=== PATIENT | male | born 1955 | race Caucasian/White ===

== ENCOUNTER → 2020-07-08 | Outpatient (CLI) | payer MEDICARE, OTHER ==
[~2020-07-08] MED LIST: DOXY100 PO
== END | disposition home or self-care (01) ==
LOC: LAB 19:15 → LAB SHORT 19:15
DX: N30.01 Acute cystitis with hematuria (principal)
CPT/HCPCS: 87086

== ENCOUNTER 2023-01-04 11:43 | Emergency (ER) | payer MEDICARE, OTHER ==
[~2023-01-04] VITALS: Ht 170.2 cm; Wt 77.1 kg
[~2023-01-04 11:43] MED LIST changes: +Amphetamine Sal20 MG PO; +INSULANI; +Percocet 5-3251 EACH PO
[2023-01-04] MEDS ORDERED: OXAYDO5 M1 PO (14:46)
[2023-01-04] MEDS ORDERED: METPRE4DP PO (14:46)
[2023-01-04 15:15] VITALS: BP 151/91
== END 2023-01-04 15:15 | disposition home or self-care (01) ==
LOC: ER 11:43
DX: M54.16 Radiculopathy, lumbar region (principal); Z88.5 Allergy status to narcotic agent
CPT/HCPCS: 99283; A9270; J1100

== ENCOUNTER 2023-07-16 11:32 | Inpatient (IN) | payer MEDICARE, OTHER ==
[~2023-07-16] VITALS: Ht 170.2 cm; Wt 76.2 kg
[~2023-07-16 11:32] MED LIST changes: -INSULANI; +INSULANI SC; +METPRE4DP PO; +OXAYDO5 M1 PO
[2023-07-16 13:26] LABS: Hematocrit 39.6 % (37.0-53.0); Hemoglobin 13.2 g/dL (13.5-17.5); Mean Corpuscular HGB 24.5 pg (26.0-34.0); Mean Corpuscular HGB Conc 33.3 g/dL (31.5-36.5); Mean Corpuscular Volume 74 fL (80-100); Mean Platelet Volume 10.7 fL (9.1-12.4); Platelet Count 120 K/mm3 (150-400); RDW Coefficient Variation 18.9 % (11.7-14.2); RDW Standard Deviation 48.7 fL (35.1-46.3); Red Blood Cell Count 5.39 M/mm3 (4.30-5.90); White Blood Cell Count 6.01 K/mm3 (4.00-11.30)
[2023-07-16 13:35] LABS: Bun/Creatinine Ratio 36.7 (12.0-20.0); Calcium, Blood 10.1 mg/dL (8.5-10.1); Creatinine, Blood 1.5 mg/dL (0.60-1.20); Potassium, Blood 3.4 mmol/L (3.5-5.5)
[2023-07-16 13:56] LABS: BAND PERCENT MAN 34 % (0-8); BASOPHILS PERCENT MAN 0 % (0-2); EOSINOPHILS ABSOLUTE MAN 0.06 K/mm3 (0.00-0.68); EOSINOPHILS PERCENT MAN 1 % (0-6); LYMPHOCYTES PERCENT MAN 5 % (21-46); MONOCYTES ABSOLUTE MAN 0.48 K/mm3 (0.16-1.47); MONOCYTES PERCENT MAN 8 % (4-13); NEUTROPHILS ABSOLUTE MAN 5.16 K/mm3 (1.96-9.15); SEG NEUTROPHILS PERCENT MAN 52 % (41-73); TOTAL CELLS COUNTED 100
[2023-07-16 18:24] LABS: Source, Urine Clean Catch
[2023-07-16 18:38] LABS: Bilirubin, Urine Neg (Neg); Blood, Urine 2+ (Neg); Color, Urine Yellow (P-Yellow); Glucose Qualitative, Urine 4+ (Neg); Ketones, Urine Neg (Neg); Leukocyte Esterase, Urine Neg (Neg); Nitrite, Urine Neg (Neg); Protein, Urine 2+ (Neg); Specific Gravity, Urine 1.015 (1.003-1.022); Urobilinogen, Urine NORM (Normal)
[2023-07-16 18:46] LABS: Appearance, Urine Hazy (Clear)
[2023-07-16 18:50] LABS: Bacteria Many /hpf; Hyaline Casts 0-2 /lpf (0-2); Renal Epithelial Rare /hpf (0-Rare); Squamous Epithelial Cells Few /hpf (Few); Yeast/Fungi Urine Few /hpf
[2023-07-17] MEDS ORDERED: HYDCHL25 PO (01:09)
[2023-07-17] MEDS ORDERED: KLOR-CON 1010 ME9 PO (01:09)
[2023-07-17] MEDS ORDERED: CYCL10 PO (01:10)
[2023-07-17] MEDS ORDERED: ACTOS30 MG PO (01:12)
[2023-07-17] MEDS ORDERED: Ventolin/Prove6.7 GM INH (01:12)
[2023-07-17] MEDS ORDERED: MOBIC15 MG PO (01:13)
[2023-07-17] MEDS ORDERED: Simvastatin20 MG PO (01:13)
[2023-07-17] MEDS ORDERED: FUROSEMIDE40 MG PO (01:14)
[2023-07-17] MEDS ORDERED: PROZAC2010 PO (01:15)
[2023-07-17] MEDS ORDERED: CELEXA40 M9 PO (01:16)
[2023-07-17] MEDS ORDERED: CITALOPRAM HBR20 M9 PO (01:16)
[2023-07-17] MEDS ORDERED: BUSPIRONE HCL10 M6 PO (01:17)
[2023-07-17] MEDS ORDERED: PANTOPRAZOLE SO40 M2 PO (01:17)
[2023-07-17] MEDS ORDERED: BUPR75 PO (01:18)
[2023-07-17] MEDS ORDERED: ATOMOXETINE HCL40 M3 PO (01:18)
[2023-07-17] MEDS ORDERED: SEMGLEE (Y100 UNIT/2 SC (01:19)
[2023-07-17] MEDS ORDERED: JARDIANCE10 MG PO (01:19)
[2023-07-17 01:30] VITALS: BP 123/85
[2023-07-17 05:08] VITALS: BP 106/77
[2023-07-17 05:50] LABS: Hematocrit 32.2 % (37.0-53.0); Hemoglobin 10.7 g/dL (13.5-17.5); Mean Corpuscular HGB 24.1 pg (26.0-34.0); Mean Corpuscular HGB Conc 33.2 g/dL (31.5-36.5); Mean Corpuscular Volume 73 fL (80-100); Mean Platelet Volume 10.7 fL (9.1-12.4); Platelet Count 69 K/mm3 (150-400); RDW Coefficient Variation 18.5 % (11.7-14.2); Red Blood Cell Count 4.44 M/mm3 (4.30-5.90); White Blood Cell Count 5.93 K/mm3 (4.00-11.30)
--- NOTE | 2023-07-17 05:53 | NUR ---
SHIFT SUMMARY NOC PT A/O X 2-3 AND CONFUSED AT TIMES. ADMIT FROM ED WITH DX OF BLE WEAKNESS AND INRETRACATABLE PAIN. ALSO HAS UTI AND RECEIVING IV ROCEPHIN ABX. PT HAS ROBERTSON IN PLACE FOR ACUTE RETENTION. IS ON BEDREST AND IS 2PA MAX. PT HAS NS @ 75 ML/HR X 1 BAG INFUSING. PT HAS BED ALARM ON BECAUSE OF IMPULSITIVITY AND ATTEMPTING OOB UNSAFELY. PT ALSO HAS TO BE REMINDED NOT TO PULL ON ROBERTSON CATHETER. PT PAIN IS MANAGED WITH FENTANYL IV Q4H WITH MINIMAL EFFECT. 3 DOSES OF TORADOL ORDERED WITH FIRST DOSE GIVEN. PT IS CURRENTLY RESTING WITH BED ALARM ON, 3 BED RAILS UP, BED IN LOWEST POSITION, AND CALL LIGHT WITHIN REACH.
[2023-07-17 06:11] LABS: Albumin/Globulin Ratio 0.5 (0.8-1.8); Bilirubin, Total 1.1 mg/dL (0.1-1.0); Bun/Creatinine Ratio 46.1 (12.0-20.0); Calcium, Blood 9.3 mg/dL (8.5-10.1); Creatinine, Blood 1.41 mg/dL (0.60-1.20); Globulin, Blood 4.1 g/dL (2.2-4.0); Potassium, Blood 3.6 mmol/L (3.5-5.5); Total Protein, Blood 6.1 g/dL (6.4-8.2)
[2023-07-17 06:37] LABS: BAND PERCENT MAN 10 % (0-8); BASOPHILS PERCENT MAN 0 % (0-2); EOSINOPHILS PERCENT MAN 0 % (0-6); LYMPHOCYTES ABSOLUTE MAN 0.17 K/mm3 (0.84-5.20); LYMPHOCYTES PERCENT MAN 3 % (21-46); METAMYELOCYTE ABSOLUTE MAN 0.23 K/mm3 (0.00-0.00); METAMYELOCYTE PERCENT MAN 4 % (0-0); MONOCYTES ABSOLUTE MAN 0.29 K/mm3 (0.16-1.47); MONOCYTES PERCENT MAN 5 % (4-13); NEUTROPHILS ABSOLUTE MAN 5.21 K/mm3 (1.96-9.15); SEG NEUTROPHILS PERCENT MAN 78 % (41-73); TOTAL CELLS COUNTED 100
[2023-07-17 07:06] VITALS: BP 116/69
[2023-07-17 09:45] LABS: U Cannabinoids Screen DETECTED
[2023-07-17 09:46] LABS: U Amphetamine Screen DETECTED; U Barbituate Screen Not Detected; U Benzodiazapine Screen Not Detected; U Buprenorphine Screen Not Detected; U Cocaine Screen Not Detected; U Methadone Screen Not Detected; U Methamphetamine Screen DETECTED; U Opiates Screen Not Detected; U Oxycodone Screen Not Detected; U Phencyclidine Screen Not Detected
[2023-07-17 15:25] VITALS: BP 129/86
--- NOTE | 2023-07-17 17:14 | NUR ---
SHIFT SUMMARY Pt alert and oriented on assessment. at bedside. Pt agrees to IV placement and not remove. Meds given as ordered. Increased sleep between meals. Shoulder pain managed with IV Toradol. Brooks intact with good output. ACHS blood sugars with ordered coverage provided. Able to swallow pills whole. Pain and safety maintained. Will continue to monitor this shift.
[2023-07-17 19:07] VITALS: BP 130/83
--- NOTE | 2023-07-18 04:28 | NUR ---
SHIFT SUMMARY PATIENT A/O X3. ROBERTSON REMOVED THIS SHIFT. PATIENT C/O OF LEFT SHOULDER PAIN-MEDICATED PER EMAR. PATIENT SLEPT OFF AND ON THIS SHIFT. PATIENT USING THE URINAL CONTINENT/INCONTINENT SINCE REMOVAL OF ROBERTSON-COMPLETE BED CHANGE REQUIRED. BLADDER SCAN DONE THIS AM-143 MLS POST CONTINENT/INCONTINENT VOID. PATIENT PLESANT AND COOPERATIVE WITH CARE. IV INFUSING WITH NO ISSUES. BED IS LOCKED IN THE LOWEST POSITION WITH CALL LIGHT IN REACH.
[2023-07-18 04:52] VITALS: BP 120/73
[2023-07-18 04:55] LABS: Hematocrit 30.5 % (37.0-53.0); Hemoglobin 10.3 g/dL (13.5-17.5); Mean Corpuscular HGB Conc 33.8 g/dL (31.5-36.5); Mean Corpuscular Volume 71 fL (80-100); NRBC ABSOLUTE 0.02 K/mm3 (0.00-0.02); NRBC Auto 0.4 /100 WBC (0.0-0.2); RDW Coefficient Variation 18.4 % (11.7-14.2); RDW Standard Deviation 46.6 fL (35.1-46.3); Red Blood Cell Count 4.29 M/mm3 (4.30-5.90); White Blood Cell Count 4.54 K/mm3 (4.00-11.30)
[2023-07-18 05:32] LABS: Platelet Count 42 K/mm3 (150-400)
[2023-07-18 05:46] LABS: Albumin, Blood 1.9 g/dL (3.4-5.0); Anion Gap 9 mmol/L (6-16); Blood Urea Nitrogen 62 mg/dL (8-24); Bun/Creatinine Ratio 69.4 (12.0-20.0); CO2, Blood 21 mmol/L (21-32); Chloride, Blood 103 mmol/L (98-108); Creatinine, Blood 0.89 mg/dL (0.60-1.20); Glomerular Filtration Rate 93 (60-); Glucose, Blood 145 mg/dL (70-99); Phosphorus, Blood 2.2 mg/dL (2.5-4.9); Potassium, Blood 3.1 mmol/L (3.5-5.5); Sodium, Blood 133 mmol/L (136-145)
[2023-07-18 05:48] LABS: BAND PERCENT MAN 15 % (0-8); BASOPHILS PERCENT MAN 0 % (0-2); EOSINOPHILS PERCENT MAN 0 % (0-6); LYMPHOCYTES % ATYPICAL MANUAL 1 % (0-0); LYMPHOCYTES PERCENT MAN 8 % (21-46); METAMYELOCYTE ABSOLUTE MAN 0.13 K/mm3 (0.00-0.00); METAMYELOCYTE PERCENT MAN 3 % (0-0); MONOCYTES ABSOLUTE MAN 0.36 K/mm3 (0.16-1.47); MONOCYTES PERCENT MAN 8 % (4-13); MYELOCYTE ABSOLUTE MAN 0.04 K/mm3 (0.00-0.00); MYELOCYTE PERCENT MAN 1 % (0-0); NEUTROPHILS ABSOLUTE MAN 3.58 K/mm3 (1.96-9.15); SEG NEUTROPHILS PERCENT MAN 64 % (41-73); TOTAL CELLS COUNTED 100
[2023-07-18 15:12] VITALS: BP 129/76
--- NOTE | 2023-07-18 19:23 | NUR ---
SHIFT SUMMARY PT ALERT ORIENTED TO SELF AND PLACE. FORGETFUL DIFFICULT TIME RECALLING DATE. BUT REORIENTS QUICKLY, INCONT. PT FAMILY EXPRESSED CONCERN FOR HOME MEDICATION USE. DR. BRITO AT BEDSIDE TO DISCUSS CONCERNS. PT STARTED ON THAMINE AND FOLIC ACID. ACCORDING TO FAMILY PT NO LONGER TAKES ADDERALL. HELD THIS MORNING. PT IS A 2 PERSON MAX ASSIST PIVOT TO CHAIR. HE WAS UNABLE TO WALK DUE TO SAFETY CONCERN. TREATED PAIN AND CBG PER EMAR. NO ACUTE CHANGES THIS SHIFT.
[2023-07-18 19:41] VITALS: BP 120/62
--- NOTE | 2023-07-19 00:05 | NUR ---
HOSPITALIST CONTACTED. HOSPITALIST CALLED FOR PATIENTS PAIN UNCONTROLLED BY TYLENOL. HOSPITALIST, DR. MON PUT IN A ONE TIME ORDER FOR TORADOL-SEE ORDERS.
--- NOTE | 2023-07-19 01:43 | NUR ---
PATIENT PULLED HIS IV TWICE, REPLACED BY AKIL DOLL. PATIENT IS CONFUSED AND DIDNT REALIZE HE HAD PULLED HIS IV. EDUCATED PATIENT ON THE IMPORTANCE OF HIS IV TO RECEIVE HIS IV ANTIBIOTICS AND CONTINUOUS IV FLUIDS-SEE EMAR.
[2023-07-19 03:22] VITALS: BP 145/82
--- NOTE | 2023-07-19 04:30 | NUR ---
SHIFT SUMMARY PATIENT HAS AN INCREASE IN CONFUSION-PULLED IV OUT X3, TALKED TO DOCTOR ELIESER REGARDING PATIENTS IV'S-DR. MON ORDERED PO ABX-SEE EMAR AND SAID TO KEEP IV OUT FOR NOW AND REASSES DURING DAYSHIFT. PATIENT IN THIS EVENING- PATIENT HAVING PAIN UNRELIEVED BY TYLENOL. HOSPITALIST ORDERED FOR A ONE TIME DOSE OF TORADOL- SEE ORDERS. PATIENT HAS SLEPT ON AND OFF T/O NIGHT. PATIENT HAS NOT USED CALL LIGHT THIS SHIFT. BED IS LOCKED IN THE LOWEST POSITION WITH CALL LIGHT IN REACH. BED EXIT ALARM ENGAGED FOR SAFETY.
[2023-07-19 05:12] LABS: BASOPHILS ABSOLUTE AUTO 0.09 K/mm3 (0.00-0.23); BASOPHILS PERCENT AUTO 1 % (0-2); Hematocrit 29.1 % (37.0-53.0); Hemoglobin 9.8 g/dL (13.5-17.5); LYMPHOCYTES ABSOLUTE AUTO 0.77 K/mm3 (0.84-5.20); LYMPHOCYTES PERCENT AUTO 6 % (21-46); MONOCYTES ABSOLUTE AUTO 0.41 K/mm3 (0.16-1.47); MONOCYTES PERCENT AUTO 3 % (4-13); Mean Corpuscular HGB Conc 33.7 g/dL (31.5-36.5); Mean Corpuscular Volume 71 fL (80-100); RDW Coefficient Variation 18.5 % (11.7-14.2); RDW Standard Deviation 47.5 fL (35.1-46.3); Red Blood Cell Count 4.08 M/mm3 (4.30-5.90); White Blood Cell Count 12.05 K/mm3 (4.00-11.30)
[2023-07-19 05:21] LABS: EOSINOPHILS ABSOLUTE AUTO 0.01 K/mm3 (0.00-0.68); EOSINOPHILS PERCENT AUTO 0 % (0-6); IMMATURE GRAN ABSOLUTE AUTO 0.33 K/mm3 (0.00-0.10); IMMATURE GRAN PERCENT AUTO 3 % (0-1); NEUTROPHILS ABSOLUTE AUTO 10.44 K/mm3 (1.96-9.15); NEUTROPHILS PERCENT AUTO 87 % (41-73); Platelet Count 42 K/mm3 (150-400)
[2023-07-19 05:38] LABS: Albumin, Blood 1.7 g/dL (3.4-5.0); Anion Gap 6 mmol/L (6-16); Blood Urea Nitrogen 50 mg/dL (8-24); Bun/Creatinine Ratio 59.6 (12.0-20.0); CO2, Blood 21 mmol/L (21-32); Calcium, Blood 9.1 mg/dL (8.5-10.1); Chloride, Blood 108 mmol/L (98-108); Creatinine, Blood 0.84 mg/dL (0.60-1.20); Glomerular Filtration Rate 95 (60-); Glucose, Blood 101 mg/dL (70-99); Potassium, Blood 3.7 mmol/L (3.5-5.5); Sodium, Blood 135 mmol/L (136-145)
[2023-07-19 05:43] LABS: BAND PERCENT MAN 6 % (0-8); BASOPHILS PERCENT MAN 0 % (0-2); EOSINOPHILS PERCENT MAN 0 % (0-6); LYMPHOCYTES ABSOLUTE MAN 0.72 K/mm3 (0.84-5.20); LYMPHOCYTES PERCENT MAN 6 % (21-46); MONOCYTES ABSOLUTE MAN 1.08 K/mm3 (0.16-1.47); MONOCYTES PERCENT MAN 9 % (4-13); NEUTROPHILS ABSOLUTE MAN 10.24 K/mm3 (1.96-9.15); SEG NEUTROPHILS PERCENT MAN 79 % (41-73); TOTAL CELLS COUNTED 34
[2023-07-19 07:38] VITALS: BP 117/78
--- NOTE | 2023-07-19 08:11 | NUR ---
PT IS TOSSING AND TURNING IN BED. STATES THAT HIS SHOULDER IS HURTING. PER NOC RN, PT PULLED OUT [address] WILL ATTEMPT TO PL[address] ANOTHER THIS MORNING. PT DECLINED BREAKFAST STATING HE "JUST WANTS TO REST". HE IS ALERT AND ORIENTED X3 FORGETFUL OF MONTH BUT ABLE TO TELL ME THE YEAR.
[2023-07-19 15:56] VITALS: BP 123/73
--- NOTE | 2023-07-19 16:56 | NUR ---
PT SLEPT MAJORITY OF MY SHIFT. NOT MUCH PO INTAKE. AROUSABLE AND ABLE TO ANSWER QUESTIONS APPROPRIATELY. APPEARS TO BE IN SEVERE PAIN WITH THAT L SHOULDER. GRIMICING AND GROWNING WITH MOVEMENT. TREATED PER EMAR. NO ACUTE CHANGES. INCONT, BED ALARM IS ON AND IN THE LOWEST POSITION.
[2023-07-19 19:22] VITALS: BP 159/84
[2023-07-20 00:08] VITALS: BP 184/95
[2023-07-20 00:29] VITALS: BP 148/91
--- NOTE | 2023-07-20 02:04 | NUR ---
shift summery. pt resting in bed, pt had blankets on head and upper body no blankets on legs. pt appeared cold placed blankets on pt from feet to chest pt appeard more comfortable. pt given hs meds and pt took with out any difficulty. reinforced iv site. pt appears to be going to sleep. latter at 0008 adult and pediatric neurologist forun pt on floor by his bed, laying on his stomach. pt cheked for injurys and then moved back to the bed vitals taken. asked pt what had happen pt confusedf. aske pt if he hit his head pt not sure , no blood seen and no lumps or bums palpated on head. asked pt if he had pain any where pt stated his right hip, no bruse seen and skin intact. palpated area and pt not seeming to be painfull at all. call light in reach bed alarm on 3rd rail up. called dr on site manager no orders other than to observe pt for the next several hrs.
[2023-07-20 06:41] LABS: Hematocrit 30.2 % (37.0-53.0); Hemoglobin 10.2 g/dL (13.5-17.5); Mean Corpuscular HGB 23.9 pg (26.0-34.0); Mean Corpuscular HGB Conc 33.8 g/dL (31.5-36.5); Mean Corpuscular Volume 71 fL (80-100); Platelet Count 56 K/mm3 (150-400); Red Blood Cell Count 4.27 M/mm3 (4.30-5.90); White Blood Cell Count 16.72 K/mm3 (4.00-11.30)
[2023-07-20 07:04] LABS: Albumin, Blood 1.9 g/dL (3.4-5.0); Anion Gap 11 mmol/L (6-16); Blood Urea Nitrogen 48 mg/dL (8-24); Bun/Creatinine Ratio 66.6 (12.0-20.0); CO2, Blood 19 mmol/L (21-32); Calcium, Blood 9.5 mg/dL (8.5-10.1); Chloride, Blood 107 mmol/L (98-108); Creatinine, Blood 0.72 mg/dL (0.60-1.20); Glomerular Filtration Rate 100 (60-); Glucose, Blood 208 mg/dL (70-99); Phosphorus, Blood 2.8 mg/dL (2.5-4.9); Potassium, Blood 4.4 mmol/L (3.5-5.5); Sodium, Blood 137 mmol/L (136-145)
[2023-07-20 07:06] LABS: BAND PERCENT MAN 3 % (0-8); BASOPHILS PERCENT MAN 0 % (0-2); EOSINOPHILS PERCENT MAN 0 % (0-6); LYMPHOCYTES ABSOLUTE MAN 0.66 K/mm3 (0.84-5.20); LYMPHOCYTES PERCENT MAN 4 % (21-46); MONOCYTES PERCENT MAN 3 % (4-13); NEUTROPHILS ABSOLUTE MAN 15.54 K/mm3 (1.96-9.15); SEG NEUTROPHILS PERCENT MAN 90 % (41-73); TOTAL CELLS COUNTED 100
[2023-07-20 07:54] VITALS: BP 142/88
[2023-07-20 14:19] LABS: Base Excess Venous -2.5 mmol/L; Bicarbonate Venous 22.9 mmol/L (24.0-30.0); PCO2 Venous 31.1 mmHg (38-42); pH Blood Venous 7.45 (7.34-7.37)
[2023-07-20 15:30] VITALS: BP 175/92
[2023-07-20 16:25] LABS: C-REACTIVE PROTEIN, EXT RANGE 9.69 mg/dL (0.000-0.300)
[2023-07-20 16:28] LABS: International Normalized Ratio 1.15
[2023-07-20 16:33] LABS: Free Thyroxine 0.99 ng/dL (0.70-1.60)
[2023-07-20 16:35] LABS: Thyroid Stimulating Hormone 2.18 uIU/mL (0.360-4.800)
[2023-07-20 17:05] VITALS: BP 174/88
--- NOTE | 2023-07-20 17:55 | NUR ---
PT HAS BEEN AOX1 AND VERY SOMULENT. PT COULD BE WOKE UP, BUT THEN WOULD FALL ASLEEP IMMEDIATELY. PT HAS BEEN INCONTENENT AND WILL NOT USE CALL LIGHT. PT APPEARED TO HAVE BECOME SLEEPIER TODAY WHEN REVIEWING NOTES. DR BRITO WAS NOTIFIED OF THIS AND THE FACT PT HAD NOT HAD ANY SCANS OF HIS HEAD DONE. DR BRITO ORDERED NEEDED IMAGES. PT WAS ALSO MOVING A BIT DURING CT SCAN AND DR BRITO ORDERED ATIVAN 1MG IV AND THEN WHEN THIS DID NOT QUITE COVER PT NOT MOVING DR BRITO ORDERED AND ADDITIONAL 1 MG IV DOSE OF ATIVAN TO COMPLETE MRI. PT ALSO HAS HAD INCREASED BP AND DR BRITO VERBALIZED HE WOULD ADD A BP MED. BED ALARM IS IN PLACE WILL CONTINUE TO MONITOR.
[2023-07-20 19:33] VITALS: BP 159/86
--- NOTE | 2023-07-21 00:10 | NUR ---
PATIENTS HAS ASKED MULTIPLE TIMES FOR RESULTS OF HEAD CT. CONCERNED ABOUT PATIENT. STATED SHE IS WORRIED THAT HE DOESNT KNOW WHO SHE IS AND THAT HE KNEW WHO SHE WAS YESTERDAY. ANGEL ALSO MENTIONED THAT SHE IS WORRIED THAT HE MIGHT PASS AND VERY UNSURE ABOUT EVERYTHING THAT IS HAPPENING, WORRIED THAT SHE HAD RECEIVED A CALL SHORTLY AFTER HEAD CT AND THE POSSIBLE PLAN OF BEING TRANSFERED TO ANOTHER HOSPITAL FOR SURGERY PENDING RESULTS OF FOLLOW-UP CT PER ANGEL. REASSURED THAT IS IN GOOD CARE AND THAT I AM KEEPING MY EYES OUT FOR ANY INFORMATION.
--- NOTE | 2023-07-21 02:15 | NUR ---
AT 0040 PATIENT PUSHED CALL LIGHT-PATIENT APPEARED TO BE IN PAIN GRIMACING, TENSE, RESTLESS-MEDICATED PATIENT PER EMAR-PATIENT RELAXED AND RESTING WITH RE-ASSESSMENT. AT 0159 PATIENTS CAME OUT AND STATED HER WAS IN PAIN AGAIN-UPON ASSESSMENT PATIENT WAS RESTLESS, GRIMACING, AND TENSE-MEDICATED PER EMAR. WHEN AT 0210 PATIENTS REPORTS THAT PATIENT IS VERY RESTLESS. UPON ASSESSMENT PATIENT IS MOVING ALL EXTREMITIES, REACHING AT IV AND IS RESTLESS. MEDICATED PER EMAR.
[2023-07-21 03:13] VITALS: BP 157/88
--- NOTE | 2023-07-21 05:19 | NUR ---
SHIFT SUMMARY PATIENT ALERT AND ORIENTED TO SELF. PATIENT RESPONDED WITH ONE WORD ANSWERS AT TIMES TONIGHT. FAMILY IN AT BEDSIDE, STAYED AT BEDSIDE T/O NIGHT. PATIENT HAD PAIN EVALUATED WITH CPOT-MEDICATED PER EMAR. PATIENT RESTLESS AND APPEARED ANXIOUS-MEDICATED PER EMAR. PATIENT IS SOMULENT AT TIMES. FOLLOW UP CT COMPLETED AT 2200 07/20/23 REPORT IN CHART. BED IS LOCKED IN THE LOWEST POSITION WITH CALL LIGHT IN REACH. BED ALARM ENGAGED FOR PATIENT SAFETY.
[2023-07-21 05:32] LABS: Hematocrit 29.2 % (37.0-53.0); Hemoglobin 9.8 g/dL (13.5-17.5); Mean Corpuscular HGB Conc 33.6 g/dL (31.5-36.5); Mean Corpuscular Volume 71 fL (80-100); Platelet Count 69 K/mm3 (150-400); RDW Coefficient Variation 19.1 % (11.7-14.2); RDW Standard Deviation 49.1 fL (35.1-46.3); Red Blood Cell Count 4.09 M/mm3 (4.30-5.90); White Blood Cell Count 16.97 K/mm3 (4.00-11.30)
[2023-07-21 06:04] LABS: Albumin, Blood 1.7 g/dL (3.4-5.0); Albumin/Globulin Ratio 0.4 (0.8-1.8); Bilirubin, Total 0.8 mg/dL (0.1-1.0); Bun/Creatinine Ratio 66.5 (12.0-20.0); Calcium, Blood 9.2 mg/dL (8.5-10.1); Creatinine, Blood 0.65 mg/dL (0.60-1.20); Potassium, Blood 3.7 mmol/L (3.5-5.5); Total Protein, Blood 5.7 g/dL (6.4-8.2)
[2023-07-21 06:17] LABS: BAND PERCENT MAN 11 % (0-8); BASOPHILS PERCENT MAN 0 % (0-2); EOSINOPHILS PERCENT MAN 0 % (0-6); LYMPHOCYTES ABSOLUTE MAN 1.01 K/mm3 (0.84-5.20); LYMPHOCYTES PERCENT MAN 6 % (21-46); MONOCYTES ABSOLUTE MAN 1.35 K/mm3 (0.16-1.47); MONOCYTES PERCENT MAN 8 % (4-13); MYELOCYTE ABSOLUTE MAN 0.16 K/mm3 (0.00-0.00); MYELOCYTE PERCENT MAN 1 % (0-0); NEUTROPHILS ABSOLUTE MAN 14.42 K/mm3 (1.96-9.15); SEG NEUTROPHILS PERCENT MAN 74 % (41-73); TOTAL CELLS COUNTED 100
[2023-07-21 07:27] VITALS: BP 163/99
[2023-07-21 15:54] VITALS: BP 171/91
--- NOTE | 2023-07-21 16:28 | NUR ---
PT IS STILL VERY TIRED AND SOMULENT WITH EPISODES OF DISCOMFORT. PT WAS MORE UNCOMFORTABLE TODAY AND WAS TREATED PER EMAR FOR PAIN. PT HAS TOLD FAMILY HE HAS PAIN, BUT MANY TIMES IS UNABLE TO TELL CAREGIVERS WHEN ASKED. ATTEMPTS TO REPOSTION AND ADD EXTRA PILLOWS HAS NOT BEEN EFFECTIVE. AT TIMES PT LOOKS TO NEED BOOSTED IN BED, BUT WILL BE SLEEPING COMFORTABLY AND WHEN REPOSTIONED FURTHER UP IN BED WILL THEN BE UNCOMFORTABLE. DR MORRISON WAS NOTIFIED OF PT'S INCREASE DISCOMFORT. ORDERS ARE TO TRY TO ONLY USE PAIN MEDS AND WHEN NOTHING ELSE IS WORKING. FOLLOW UP CT SCAN RESULTS WERE NOT COMMING THROUGH FOR DR MORRISON AND IMAGING HAD TO BE CONTACTED MULTIPLE TIMES TO GET RESULTS. APPARENTLY A TECHNICAL ISSUE HAD PREVENTED TRANSFER. COPY WAS SENT UP TO [facility] FOR DR MORRISON NO CHANGES NOTED. DR MORRISON HAS BEEN ABLE TO TALK WITH FAMILY ON CONCERNS. PT ALSO IS NOW NPO DUE TO CHOKING THIS AM ON TINY SIPS OF WATER. SPEACH THERAPY IS CONSULTED AND WILL CONTINUE TO MONITOR PT'S PROGRESS. CALL LIGHT IS WITHIN REACH WILL CONTINUE TO [facility].
--- NOTE | 2023-07-21 19:03 | NUR ---
PT HAS BEEN NPO TODAY, UNABLE TO TAKE ORAL BP MEDS. ADMINISTERED IV BP MED FOR A BP OF 171/91 HR 80. FORGING PRESS OPERATOR [employer] WAS INSTRUCTED TO CHECK BP AND NOTIFY NIGHT NURSE OF RESULTS.
[2023-07-21 19:48] VITALS: BP 175/112
--- NOTE | 2023-07-22 02:16 | NUR ---
CONTINUES TO PULL AT IV LINE. NOT REDIRECTABLE, NOTIFIED, RIGHT WRIST RESTRAINT CONTINUED. WILL CONTINUE TO MONITOR
[2023-07-22 02:53] VITALS: BP 181/91
--- NOTE | 2023-07-22 03:56 | NUR ---
VP OUTCOMES SUMMARY BP ELEVATD, APRASLINE ADMINISTERED - WILL REASSESS LATER. HAS BEEN RESTLESS AT INTERVALS. CONTINUE TO ATTEMPT TO PULL AT IV. RUE SOFT WRIST RESTRAINT IN USE. FAMILY MEMBER AT BEDSIDE FOR COMFORT. VERBAL RESPONSE INTERMITTENT UNDERSTANDABLE AND INTERMITTTEMT GARBLED SPEECH. PAIN MEDS ADMIN AT INTERVALS SEE MAR FOR DETAILS. CALL LIGHT IN REAACH AND RAILS UP X 3 FOR SAFETY. IVF INFUSING FOR HYDRATION, IN CONT OF URINE A FEW TIMES. WILL CONTINUE TO MONITOR
[2023-07-22 06:02] VITALS: BP 167/107
[2023-07-22 06:08] LABS: Hematocrit 31.3 % (37.0-53.0); Hemoglobin 10.4 g/dL (13.5-17.5); Mean Corpuscular HGB 23.9 pg (26.0-34.0); Mean Corpuscular HGB Conc 33.2 g/dL (31.5-36.5); Mean Corpuscular Volume 72 fL (80-100); Platelet Count 103 K/mm3 (150-400); RDW Coefficient Variation 19.3 % (11.7-14.2); RDW Standard Deviation 49.6 fL (35.1-46.3); Red Blood Cell Count 4.36 M/mm3 (4.30-5.90)
[2023-07-22 06:09] LABS: Mean Platelet Volume 11.3 fL (9.1-12.4)
[2023-07-22 06:37] LABS: BAND PERCENT MAN 1 % (0-8); BASOPHILS PERCENT MAN 0 % (0-2); EOSINOPHILS PERCENT MAN 0 % (0-6); LYMPHOCYTES % ATYPICAL MANUAL 1 % (0-0); LYMPHOCYTES ABSOLUTE MAN 0.98 K/mm3 (0.84-5.20); LYMPHOCYTES PERCENT MAN 4 % (21-46); METAMYELOCYTE ABSOLUTE MAN 0.19 K/mm3 (0.00-0.00); METAMYELOCYTE PERCENT MAN 1 % (0-0); MONOCYTES ABSOLUTE MAN 1.37 K/mm3 (0.16-1.47); MONOCYTES PERCENT MAN 7 % (4-13); MYELOCYTE ABSOLUTE MAN 0.39 K/mm3 (0.00-0.00); MYELOCYTE PERCENT MAN 2 % (0-0); NEUTROPHILS ABSOLUTE MAN 16.74 K/mm3 (1.96-9.15); SEG NEUTROPHILS PERCENT MAN 84 % (41-73); TOTAL CELLS COUNTED 100
[2023-07-22 06:41] LABS: Albumin, Blood 1.9 g/dL (3.4-5.0); Albumin/Globulin Ratio 0.4 (0.8-1.8); Bilirubin, Total 1.3 mg/dL (0.1-1.0); Calcium, Blood 8.9 mg/dL (8.5-10.1); Creatinine, Blood 0.6 mg/dL (0.60-1.20); Globulin, Blood 4.3 g/dL (2.2-4.0); Potassium, Blood 3.2 mmol/L (3.5-5.5); Total Protein, Blood 6.2 g/dL (6.4-8.2)
[2023-07-22 07:17] VITALS: BP 169/102
[2023-07-22 15:56] LABS: Vancomycin, Trough 21.4 ug/mL (5.0-10.0)
[2023-07-22 15:58] VITALS: BP 174/87
--- NOTE | 2023-07-22 17:51 | NUR ---
Spoke with Dr Brown earlier today and discussed case. Pt's family may benefit from goals of care discussion. Pt resting in bed and appears confused and anxious. Pt not responding verbaly. Pt's Archana and her friend at bedside. Reviewed plan of care and engaged in therapeutic conversation regarding goals of care. Discussed options to continued current treatment plan and option to consider hospice/comfort care. Archana reports being familiar with hospice as she had family members on hospice services in the past. Discussed code status wishes. Educated on life sustaining treatments including risk factors and implications to CPR/Intubation. Spouse Archana reports thinking Pt's wishes are DNR but would like to discuss further with children before changing code status. She also is requesting another day of current treatment plan before considering comfort care and hospice. Continued therapeutic listening and answered questions. Family expresses appreciation and report no other concerns at this time. Family agreeable with continued PC visits. Spoke with Primary RN Kellen and discussed case. Palliative Care will remain available
--- NOTE | 2023-07-22 18:28 | NUR ---
PATIENT REMAINS SOMNOLENT AND CONFUSED. RESTLESS IN BED TURING FROM SIDE TO SIDE. ABLE TO GET SOME REST THIS AFTERNOON. REMAINS IN R WRIST RESTRAINT TO PROTECT LINES. INCONTINENT OF URINE. NPO TODAY PER SPEECH THERAPY. STARTED ON PPN THIS EVENING. NS INFUSING AT 75ML/HR. HX OF BACK PAIN, TORADOL GIVEN X2 TODAY TO CONTROL PAIN. FAMLY AT BEDSIDE THROUGHOUT THE DAY. PALLIATIVE CARE AT BEDSIDE TO SPEAK WITH . REMAINS ON CAMERA FOR SAFETY.
[2023-07-22 19:56] VITALS: BP 183/96
[2023-07-23 04:41] VITALS: BP 184/99
[2023-07-23 06:18] LABS: BASOPHILS ABSOLUTE AUTO 0.04 K/mm3 (0.00-0.23); BASOPHILS PERCENT AUTO 0 % (0-2); EOSINOPHILS ABSOLUTE AUTO 0.07 K/mm3 (0.00-0.68); EOSINOPHILS PERCENT AUTO 0 % (0-6); Hematocrit 29.2 % (37.0-53.0); Hemoglobin 9.5 g/dL (13.5-17.5); IMMATURE GRAN ABSOLUTE AUTO 0.58 K/mm3 (0.00-0.10); IMMATURE GRAN PERCENT AUTO 3 % (0-1); LYMPHOCYTES ABSOLUTE AUTO 2.02 K/mm3 (0.84-5.20); LYMPHOCYTES PERCENT AUTO 12 % (21-46); MONOCYTES ABSOLUTE AUTO 0.98 K/mm3 (0.16-1.47); MONOCYTES PERCENT AUTO 6 % (4-13); Mean Corpuscular HGB 23.8 pg (26.0-34.0); Mean Corpuscular HGB Conc 32.5 g/dL (31.5-36.5); Mean Corpuscular Volume 73 fL (80-100); NEUTROPHILS ABSOLUTE AUTO 13.39 K/mm3 (1.96-9.15); NEUTROPHILS PERCENT AUTO 79 % (41-73); Platelet Count 104 K/mm3 (150-400); RDW Coefficient Variation 20.1 % (11.7-14.2); RDW Standard Deviation 52.8 fL (35.1-46.3); Red Blood Cell Count 3.99 M/mm3 (4.30-5.90); White Blood Cell Count 17.08 K/mm3 (4.00-11.30)
[2023-07-23 06:40] LABS: Albumin, Blood 1.6 g/dL (3.4-5.0); Albumin/Globulin Ratio 0.4 (0.8-1.8); Bilirubin, Total 0.9 mg/dL (0.1-1.0); Bun/Creatinine Ratio 55.7 (12.0-20.0); Calcium, Blood 8.8 mg/dL (8.5-10.1); Creatinine, Blood 0.58 mg/dL (0.60-1.20); Globulin, Blood 4.2 g/dL (2.2-4.0); Magnesium, Blood 2.4 mg/dL (1.6-2.4); Phosphorus, Blood 3.2 mg/dL (2.5-4.9); Potassium, Blood 3.6 mmol/L (3.5-5.5); Total Protein, Blood 5.8 g/dL (6.4-8.2)
[2023-07-23 07:20] VITALS: BP 181/94
--- NOTE | 2023-07-23 07:53 | NUR ---
SHIFT SUMMARY PT A/O TO SELF BUT DOES NOT ANSWER ORIENTATION QUESTIONS APPROPRIATELY. WHEN ASKED IF HE KNOWS WHERE HE IS HE JUST SAYS "YES" BUT DOES NOT SAY WHERE WITH FURTHER PROMPTING. WHEN ASKED IF HE IS IN PAIN HE STAES YES OR NO AND SHAKES OR NODS HIS HEAD WELL. PRN FENT GIVEN X1. PRN ATIVAN GIVEN X1. PRN TORADOL GIVEN X1. PAIN MEDS WERE NOT GIVEN OFTEN PRIOR SHIFT PATIENT STATED MOST OF THE TIME THAT HE WAS NOT IN PAIN. PT WAS ABLE TO REST COMFORTABLY FOR A FEW HOURS BEFORE HED GET RESTLESS AGAIN. PATIENT BEGAN SHIFT WITH 2 LEFT FOREARM IV'S. ONE BECAME DISLODGED. NOTIFIED CHARGE WHO WAS ABLE TO HELP ME IN PUTTING A NEW IV IN RIGHT WRIST. PPN, IV FLUIDS AND IV ANTIBIOTICS ARE ORDERED. LEFT FOREARM IV WHERE PPN WAS INFUSING APPEARED INFILTRATED SO I REMOVED THIS IV EARLY THIS AM AND PUT THE PPN ON HOLD UNTIL HIS ANTIBIOTICS FINISHED. PASSED ON TO DAY SHIFT WHO WILL SWITCH OVER PPN TO NEW R WRIST IV THAT HAD CONT FLUIDS INFUSING WITH THE IV VANCO PIGGYBACK THIS MORNING. PASSED ON TO DAY SHIFT THAT HE DOES NEED A SECOND IV AND A POWERGLIDE IF POSSIBLE BOTH OF HIS HANDS ARE 3+ EDEMA. RIGHT HAND IS SLIGHTLY GREATER WITH THE WRIST RESTRAINT, RADIAL PULSES STRONG SWITCHED RESTRAINT FROM RIGHT TO LEFT WRIST TO PREVENT PT FROM PULLING AT LINES. PATIENT IS INCONTINENT AND BECOMES MORE RESTLESS AND TRIES TO TAKE OFF HIS BRIEF AFTER HES GONE. VIDEO MONITORING. BED ALARM ON. UNABLE TO MAKE NEEDS KNOWN. SIGNIFICANT OTHER AT BEDSIDE. NPO. ORAL CARE PATIENTS MOUTH IS VERY DRY HE SLEEPS WITH IT WIDE OPEN. PT HAS SORE TO MOUTH AND APPEARS TO HAVE A SPLIT SCAB TO MIDDLE OF TONGUE. PATIENT HAS A SMALL WOUND TO LEFT BUTTOCK. MEPILEX OVER.
--- NOTE | 2023-07-23 11:59 | NUR ---
Pt resting in bed with eyes closed and in restraints. Pt remains with his eyes closed throughout visit. Pt's spouse and daughter at bedside. Engaged in therapeutic conversation regarding Pt's code status. Spouse and daughter report they would like to discuss further with other family members and for now keep Pt a Full Code. crop specialist in to place power glide. Ended visit. Spoke with Primary RN Ratna and discussed case. Palliative Care will remain available
[2023-07-23 15:38] VITALS: BP 188/117
[2023-07-23 16:54] VITALS: BP 164/97
--- NOTE | 2023-07-23 17:50 | NUR ---
SHIFT SUMMARY PG PLACED TO FRITZ TODAY. BILATERAL WRIST RESTRAINTS ADDED TO HELP PROTECT LINES. PPN RUNNING. NS DCED DUE TO INCREASED SODIUM TODAY. DIETICIANS MANAGING PPN. SEE EMAR FOR PAIN AND ANXIETY MED ADMINISTRATION. PT ABLE TO VERBALIZE THAT HIS BACK HURTS TODAY. EXTREMELY RESTLESS AND UNABLE TO FOLLOW DIRECTION WELL. THERAPIES CANCELED AT THIS TIME DUE TO PATIENT BEING UNABLE TO FOLLOW DIRECTION. ORAL CARE COMPLETED BY HYEGENIST AND CONTINUED T/O THE DAY. PALLIATIVE CARE IN ROOM TO DISCUSS CODE STATUS. FAMILY TO DISCUSS. PATIENT REMAINS A FULL CODE AT THIS TIME. CONT PULSE OX PLACED IN ROOM FOR OCCATIONAL SEDATION. HYDRALAZINE GIVEN THIS AFTERNOON TO HELP WITH HTN. NO BM SINCE ADMIT. NOTIFIED MD OF THIS. NO OTHER ACUTE CHANGES IN ASSESSMENT AT THIS TIME. VS REVIEWED.
--- NOTE | 2023-07-23 18:43 | NUR ---
FAMILY WISHES TO MAKE PATIENT A DNR AFTER FURTHER DISCUSSION, FAMILY HAS DECIDED THEY THINK A DNR IS THE BEST FOR THE PATIENT. CALL SENT OUT TO HOSPITALIST. AWAITING CALL BACK FOR ORDERS.
[2023-07-23 20:19] VITALS: BP 145/91
[2023-07-23 22:11] LABS: Vancomycin, Trough 19.9 ug/mL (5.0-10.0)
[2023-07-24 03:22] VITALS: BP 176/103
[2023-07-24 07:23] LABS: Albumin, Blood 1.6 g/dL (3.4-5.0); Albumin/Globulin Ratio 0.3 (0.8-1.8); Bun/Creatinine Ratio 54.1 (12.0-20.0); Calcium, Blood 8.5 mg/dL (8.5-10.1); Creatinine, Blood 0.56 mg/dL (0.60-1.20); Globulin, Blood 4.6 g/dL (2.2-4.0); Magnesium, Blood 2.3 mg/dL (1.6-2.4); Phosphorus, Blood 2.9 mg/dL (2.5-4.9); Potassium, Blood 4.9 mmol/L (3.5-5.5); Total Protein, Blood 6.2 g/dL (6.4-8.2)
[2023-07-24 07:38] VITALS: BP 168/81
--- NOTE | 2023-07-24 07:43 | NUR ---
SHIFT SUMMARY PT STILL A/O TO SELF. RECOGNIZES SIGNIFICANT OTHER AT BEDSIDE. ABLE TO SAY ONE WORD PHRASES. SEVERE RESTLESNESS, PAIN. PRN ATIVAN GIVEN X3 WITH ONE INSTANCE BEING THE MINIMUM 2 HOURS APART. PRN FENTANYL AND PRN TORADOL GIVEN. PATIENT IS IN A LEFT WRIST RESTRAINT FOR (SEE RESTRAINT DOC). IV ANTIBIX. PPN INFUSING. NO SIGNIFICANT CHANGES TO NEURO BASELINE.
[2023-07-24 08:08] LABS: BASOPHILS ABSOLUTE AUTO 0.03 K/mm3 (0.00-0.23); BASOPHILS PERCENT AUTO 0 % (0-2); EOSINOPHILS ABSOLUTE AUTO 0.09 K/mm3 (0.00-0.68); EOSINOPHILS PERCENT AUTO 1 % (0-6); Hematocrit 29.6 % (37.0-53.0); Hemoglobin 9.7 g/dL (13.5-17.5); IMMATURE GRAN PERCENT AUTO 2 % (0-1); LYMPHOCYTES ABSOLUTE AUTO 2.19 K/mm3 (0.84-5.20); LYMPHOCYTES PERCENT AUTO 14 % (21-46); MONOCYTES ABSOLUTE AUTO 0.94 K/mm3 (0.16-1.47); MONOCYTES PERCENT AUTO 6 % (4-13); Mean Corpuscular HGB 24.1 pg (26.0-34.0); Mean Corpuscular HGB Conc 32.8 g/dL (31.5-36.5); Mean Corpuscular Volume 73 fL (80-100); NEUTROPHILS ABSOLUTE AUTO 11.63 K/mm3 (1.96-9.15); NEUTROPHILS PERCENT AUTO 77 % (41-73); Platelet Count 117 K/mm3 (150-400); RDW Coefficient Variation 21.1 % (11.7-14.2); RDW Standard Deviation 53.4 fL (35.1-46.3); Red Blood Cell Count 4.03 M/mm3 (4.30-5.90); White Blood Cell Count 15.18 K/mm3 (4.00-11.30)
[2023-07-24 13:36] LABS: Vancomycin, Trough 19.9 ug/mL (5.0-10.0)
[2023-07-24 16:25] VITALS: BP 173/85
--- NOTE | 2023-07-24 16:53 | NUR ---
NO ACUTE CHANGES. PT STILL IF VERY SOMULENT AND THEN HAS EPISODES OF RESTLESSNESS. PT TREATED FOR ANXIETY AND PAIN PER EMAR. PT IS REPOSITIONED AND CHANGED Q2HRS. PT AOX1 AND AT TIMES CAN IDENTIFY FAMILY. PT IT STILL NOT AWAKE ENOUGH TO DO SWALLOW EVAL. BED ALARM IS IN PLACE WILL CONTINUE TO MONITOR.
[2023-07-24 19:37] VITALS: BP 155/99
[2023-07-25 03:26] VITALS: BP 171/105
--- NOTE | 2023-07-25 04:30 | NUR ---
REPORT RECEIVED VERIFIED PT CONFUSED IN AND OUT OF SLEEP, FAMILY AT BESIDE. PT RESPONDS TO VERBAL BUT CANNOT FOLLOW COMMANDS. SKIN IS INTACT EXCEPT FOR A FEW SCABS, SCROTUM VERY RED AND IRRITATED FROM EXCESS URINE,INC. CONDOM CATH PLACED NOT SURE HOW LONG IT WILL STAY. PT SEEMS VERY AGITATED AND IS PULLING AT COVERS AND LINES SO ATIVAN WAS GIVEN. PER MD PLAN IS TO NOT SEDATE PT TOO MUCH WITH HOPES OF HIM BECOMING MORE ALERT. MOUTH CARE AND REPOSITIONING DONE SEVERAL TIME THOUGHOUT SHIFT. PT PULLED OFF CONDOM CATH, 1000 MLS COLLECTED. NO ATTEMPT TO REPLACE CATH WAS MADE. PT CLEANED AND COVERED WITH POWDER, NO CHANE IN MENTATION.
[2023-07-25 05:57] LABS: Bun/Creatinine Ratio 48.3 (12.0-20.0); Calcium, Blood 8.3 mg/dL (8.5-10.1); Creatinine, Blood 0.54 mg/dL (0.60-1.20); Magnesium, Blood 2.2 mg/dL (1.6-2.4); Phosphorus, Blood 2.6 mg/dL (2.5-4.9); Potassium, Blood 3.4 mmol/L (3.5-5.5)
[2023-07-25 07:23] VITALS: BP 157/85
--- NOTE | 2023-07-25 14:50 | NUR ---
Pt resting in bed with his eyes closed. Lots of family at bedside. Spoke with some family out in [place] prior to visiting with Pt including daughter. Met with family in Pt's room and reviewed options. Discussed potential implications to choices of dobhoff and peg tube. Offered therapeutic listening and answered questions. Family would like to meet with Dr Porter and Palliative Care tomorrow to discuss option further including risks vs benefits. Spoke with Dr Porter who is agreeable to meet with family tomorrow approximately 1100. Palliative Care will F/U for family meeting
[2023-07-25 15:38] VITALS: BP 158/96
--- NOTE | 2023-07-25 19:13 | NUR ---
SHIFT SUMMARY PATIENT RESTING, EASILY AROUSES, RESTLESS AT TIMES. PATIENT ABLE TO VERBALIZE ONE TO 2 WORDS AT TIMES. FREQUENT ORAL CARE DONE AND DEEP SUCTIONING. PATIENT ABLE TO COUGH BY END OF SHIFT. PATIENT CONTINUES TO HAVE NO GAG. FAMILY AT BEDSIDE MOST OF THE DAY. DISCUSSED POSSIBLE PLACEMENT OF DAMIÁN. PATIENT STATED NO WITH THAT DISCUSSION. PATIENT CONTINUES TO BE NPO BECAUSE OF NO GAG. SPEECH THERAPY INVOLVED. PATIENT VERBALIZING BACK PAIN FREQUENTLY. FAMILY STATES THAT HE HAS HAD MULTIPLE BACK SURGERIES AND CHRONIC PAIN PRIOR TO HOSPITALIZATIONS. FAMILY MEETING SCHEDULED WITH PROVIDER AND FAMILY TOMORROW
--- NOTE | 2023-07-25 19:26 | NUR ---
RESTRAINTS REMOVED AT 8AM. PATIENT HAS NOT MADE ANY EFFORT TO PULL AT LINES OR TUBES
[2023-07-25 19:56] VITALS: BP 148/92
[2023-07-26 03:24] VITALS: BP 153/88
[2023-07-26 06:13] LABS: BASOPHILS ABSOLUTE AUTO 0.02 K/mm3 (0.00-0.23); BASOPHILS PERCENT AUTO 0 % (0-2); EOSINOPHILS ABSOLUTE AUTO 0.09 K/mm3 (0.00-0.68); EOSINOPHILS PERCENT AUTO 1 % (0-6); Hematocrit 26.5 % (37.0-53.0); Hemoglobin 8.5 g/dL (13.5-17.5); IMMATURE GRAN PERCENT AUTO 1 % (0-1); LYMPHOCYTES ABSOLUTE AUTO 2.59 K/mm3 (0.84-5.20); LYMPHOCYTES PERCENT AUTO 14 % (21-46); MONOCYTES ABSOLUTE AUTO 1.18 K/mm3 (0.16-1.47); MONOCYTES PERCENT AUTO 6 % (4-13); Mean Corpuscular HGB 24.3 pg (26.0-34.0); Mean Corpuscular HGB Conc 32.1 g/dL (31.5-36.5); Mean Corpuscular Volume 76 fL (80-100); NEUTROPHILS ABSOLUTE AUTO 14.51 K/mm3 (1.96-9.15); NEUTROPHILS PERCENT AUTO 78 % (41-73); Platelet Count 165 K/mm3 (150-400); RDW Standard Deviation 55.5 fL (35.1-46.3); White Blood Cell Count 18.59 K/mm3 (4.00-11.30)
[2023-07-26 06:19] LABS: Mean Platelet Volume 12.1 fL (9.1-12.4)
[2023-07-26 06:41] LABS: Alanine Aminotransfer (ALT/SGP 22 U/L (12-78); Albumin, Blood 1.4 g/dL (3.4-5.0); Albumin/Globulin Ratio 0.3 (0.8-1.8); Alk Phos 88 U/L (50-136); Anion Gap 4 mmol/L (6-16); Aspartate Aminotrans (AST/SGOT 31 U/L (12-37); Bilirubin, Total 0.9 mg/dL (0.1-1.0); Blood Urea Nitrogen 24 mg/dL (8-24); Bun/Creatinine Ratio 42.9 (12.0-20.0); CO2, Blood 24 mmol/L (21-32); Calcium, Blood 8.4 mg/dL (8.5-10.1); Chloride, Blood 120 mmol/L (98-108); Creatinine, Blood 0.56 mg/dL (0.60-1.20); Globulin, Blood 4.4 g/dL (2.2-4.0); Glomerular Filtration Rate 107 (60-); Glucose, Blood 239 mg/dL (70-99); Magnesium, Blood 2.1 mg/dL (1.6-2.4); Potassium, Blood 3.6 mmol/L (3.5-5.5); Sodium, Blood 148 mmol/L (136-145); Total Protein, Blood 5.8 g/dL (6.4-8.2); Triglycerides 166 mg/dL (30-160)
[2023-07-26 07:31] VITALS: BP 143/95
--- NOTE | 2023-07-26 07:32 | NUR ---
PT DOING MUCH BETTER TODAY GIVE EYE CONTACT AND SMILES FROM TIME TO TIME. PT STILL CONFUSED AND C/O A LOT OF PAIN TO LEFT SOULDER. I TRIED TO MEDICATE MUSH I COULD BUT PT STILL SEEMED TO BE IN PAIN. ALSO PT WAS CHANGED OFTEN BEXCAUSE HE WAS VERY INC. FAMILY AT BEDSIDE TO HELP WITH SOME ASPECT OF PT, POWER GLIDE TO RIGHT UPPER ARM IS WORKING WELL AND STILL DRAWING BLOOD TO PREVENT MORE POKES. PT OFF RESTRAINTS AND HAS NOT ATTEMPTED TO GET OUT OF BED NOR PULL AT LINES
[2023-07-26 15:45] VITALS: BP 152/86
--- NOTE | 2023-07-26 18:30 | NUR ---
SHIFT SUMMARY PATIENT ALERT AT TIMES AND MORE INTERACTIVE TODAY. PATIENT ABLE TO SAY 3-5 WORD STATEMENTS. PATIENT FOLLOWING VERBAL CUES. PATIENT CONTINUES TO NEED FREQUENT ORAL CARE AND SUCTIONING. PATIENT WORKED WITH SPEECH TODAY AND CONTINUES TO BE ASPIRATION RISK. DAMIÁN PLACED AND FEEDING INITIATED AT HALF RATE BECAUSE OF UNABLE TO CHECK RESIDUALS. PPN REDUCED TO HALF RATE WHEN FEEDING INITIATED. PATIENT CONTINUES TO BE INCONTINENT AND NEEDING TO BE CHANGED FREQUENTLY. PATIENT CONTINUES TO BE OUT OF RESTRAINTS AND CAMERA DC'D TODAY. DR. JAMES GAVE VERBAL ORDER TO RESTART RESTRAINTS IF PAITENT ATTEMPTS TO PULL AT LINES ESPECIALLY DAMIÁN. DAMIÁN WELL SECURED AT 65CM. XRAY CONFIRMED PLACEMENT BEFORE FEEDING INITITATED. FAMILY CONTINUE TO BE AT BEDSIDE MOST OF THE DAY, PATIENT MEDICATED FOR PAIN AND RESTLESSNESS PER MAR. FAMILY HOPEFUL PATIENT WILL REGAIN SWALLOW.
[2023-07-26 20:02] VITALS: BP 148/89
[2023-07-27 02:55] VITALS: BP 145/89
[2023-07-27 05:48] LABS: BASOPHILS ABSOLUTE AUTO 0.03 K/mm3 (0.00-0.23); BASOPHILS PERCENT AUTO 0 % (0-2); EOSINOPHILS ABSOLUTE AUTO 0.07 K/mm3 (0.00-0.68); EOSINOPHILS PERCENT AUTO 0 % (0-6); Hematocrit 27.4 % (37.0-53.0); Hemoglobin 8.5 g/dL (13.5-17.5); Mean Corpuscular HGB 24.1 pg (26.0-34.0); Mean Corpuscular Volume 78 fL (80-100); Platelet Count 195 K/mm3 (150-400); RDW Coefficient Variation 21.2 % (11.7-14.2); RDW Standard Deviation 57.1 fL (35.1-46.3); Red Blood Cell Count 3.52 M/mm3 (4.30-5.90); White Blood Cell Count 18.07 K/mm3 (4.00-11.30)
[2023-07-27 05:56] LABS: IMMATURE GRAN ABSOLUTE AUTO 0.15 K/mm3 (0.00-0.10); IMMATURE GRAN PERCENT AUTO 1 % (0-1); LYMPHOCYTES ABSOLUTE AUTO 2.68 K/mm3 (0.84-5.20); LYMPHOCYTES PERCENT AUTO 15 % (21-46); MONOCYTES ABSOLUTE AUTO 1.35 K/mm3 (0.16-1.47); MONOCYTES PERCENT AUTO 8 % (4-13); Mean Platelet Volume 10.9 fL (9.1-12.4); NEUTROPHILS ABSOLUTE AUTO 13.79 K/mm3 (1.96-9.15); NEUTROPHILS PERCENT AUTO 76 % (41-73)
[2023-07-27 06:23] LABS: Albumin, Blood 1.5 g/dL (3.4-5.0); Albumin/Globulin Ratio 0.3 (0.8-1.8); Bilirubin, Total 0.9 mg/dL (0.1-1.0); Calcium, Blood 8.9 mg/dL (8.5-10.1); Creatinine, Blood 0.59 mg/dL (0.60-1.20); Globulin, Blood 4.6 g/dL (2.2-4.0); Potassium, Blood 3.6 mmol/L (3.5-5.5); Total Protein, Blood 6.1 g/dL (6.4-8.2)
--- NOTE | 2023-07-27 06:34 | NUR ---
SHIFT SUMMARY: PT IS ADMITTED FOR LEG WEAKNESS AND IS A DNR. IS ALERT AND ABLE TO MAKE SOME NEEDS KNOWN. ABLE TO EXPRESS SELF IN ABOUT 3 WORD PHRASES THROUGH SHIFT. ADLs WERE 2P MOD DEPENDING ON ACTIVITY. BUT DID NOT GET OUT OF BED. PPN FEEDING THROUGH IV IN LEFT AC @ 65ML. GLUCERNA FEEDING AT 20ML THROUGH AN NG TUBE ( HOF) WITH A 50ML FLUSH EVERY 4 HOURS. NG FEEDING WAS STARTED AT SHIFT CHANGE. REDUCED RATES WAS SETUP BY DAY SHIFT NURSE. THIS WAS REPORTED TO THIS NURSE. RATIONAL FOR REDUCED RATES WERE PT HAS BEEN NPO FOR A SEVERAL DAYS ( REPORTED) AND HAS NOT HAD ANYTHING IN THE GI SYSTEM. THE REDUCED RATE IS A TRIAL TO NO OVERLOAD THE GI SYSTEM AND CAUSE N/V. THIS NURSE SPOKE WITH THE CHARGE NURSE ABOUT FOLLOWING REDUCED RATES AND THEY AGREED. MONITORED FOR SX OF ASPIRATION THROUGH SHIFT AND HAVE NOT NOTED ANY. LUNGS HAVE REMAINED CLEAR. WAS GIVEN PRN PAIN MEDS X2 THAT WERE EFFECTIVE.
[2023-07-27 07:21] VITALS: BP 143/83
[2023-07-27 15:46] VITALS: BP 144/81
--- NOTE | 2023-07-27 17:42 | NUR ---
SHIFT SUMMARY PATIENT CONTINUES TO BE RESTLESS AND AGITATED AT TIMES. PATIENT PULLED DAMIÁN OUT AT START OF SHIFT DURING SHIFT CHANGE. DAMIÁN REPLACED AND XRAY OBTAINED. FEEDING RESTARTED AFTER CONFIRMATION. FAMILY ARRIVED AFTER NEW DAMIÁN PLACED. FAMILY WILLING TO MONITOR PATIENT TO PREVENT USE OF RESTRAINTS. FAMILY EDUCATED THAT IF PATIENT IS NOT MONITORED OR IF FAMILY NOT ATTENTIVE, RESTRAINTS WOULD BE INITIATED PER ORDERS. RESTRAINTS RESTARTED AND INITIATED THIS EVENING. PATIENT SEEN ATTEMPTING TO REACH FOR DAMIÁN WITH AT BEDSIDE. ORDER OBTAINED FOR RESTRAINTS. FAMILY EDUCATED ABOUT POSSIBLE GEORGE IN AM. NG FEEDING TO BE HELD AFTER MIDNIGHT. PER DR. JAMES, SPOKE WITH [facility], NO BED AVAILABLE AT THIS TIME AND AGREE WITH CURRENT TREATMENT. PATIENT NEEDING FREQUENT ATTEND CHANGES AND REPOSITIONING. PATIENT DANGLED AT BEDSIDE 3 X TODAY.
[2023-07-27 19:23] VITALS: BP 122/71
--- NOTE | 2023-07-28 00:28 | NUR ---
MPO FOR GEORGE SCHEDULED LATER TODAY. TUBE FEEDING STOPPED. YAMIL STEEL FLUSHED. IV ANTIBIOTICS INFUSIHG - SEE MAR FOR DETAILS. BILAT WRIST RESTRAINTS CONFTINUE TO PREVENT PULLING OUT LINES. HOB ELEVATED FOR ASPIRATION PRECAUTIONS. ORAL CARE DONE. CALL LIGHT IN REACH.
[2023-07-28 02:35] VITALS: BP 127/75
--- NOTE | 2023-07-28 05:19 | NUR ---
CRIBBING SETTER SUMMARY VSS. TUBE FEEDING STOPPED AT MIDNIGHT AND FLUSHED. NPO FOR POSSIBLE GEORGE LATER TODAY. TO KALEB LATER ON DAY SHIFT. REMAINS IN BILAT WRIST SOFT RESTRAINTS FOR SAFETY - TO PREVENT PULING OUT LINES AND TUBES HE DOES NOT REDIRECT. HOB ELEVATED. PAIN MEDS ADMIN FOR COMFORT - SEE MAR FOR DETAILS. RAILS UP X 3 AND CALL VIOLA LOW FOR SAFETY. HAS BEEN RESTING INTERMITTENTLY THROUGHOUT SHIFT. WILL CONTINUE TO MONITOR.
[2023-07-28 07:23] VITALS: BP 130/77
--- NOTE | 2023-07-28 08:03 | NUR ---
NURSE NOTE PATIENT PULLED OUT NG TUBE. DR BOLAND NOTIFIED. WILL ATTEMPT TO REPLACE.
--- NOTE | 2023-07-28 09:48 | NUR ---
NURSE NOTE BLOOD CULTURES DRAWN. DR BOLAND IN TO SEE PATIENT. DR BOLAND OKAY WITH NG TUBE OUT IF PATIENT MAINTAINS SPEECH THERAPY RECOMMENDED DIET.
[2023-07-28 15:35] VITALS: BP 131/76
--- NOTE | 2023-07-28 17:32 | NUR ---
SHIFT SUMMARY PATIENT IS ALERT AND ORIENTED X2-3. PATIENT HAS HAD NO ACUTE EVENTS THIS SHIFT. VITAL SIGNS REVIEWED. PATIENT WAS TO GET A GEORGE THIS AFTERNOON BUT WAS PUSHED BACK UNTIL TOMORROW. PATIENT TO REMAIN NPO AFTER MIDNIGHT. PATIENT PULLED OUT NG TUBE. DR CLEMENTE AND IS OKAY TO LEAVE OUT. SPEECH THERAPY SAW PATIENT AND WAS GIVEN A DIET. SEE THERAPIST NOTES/ ORDERS. PATIENT COMPLAINED OF PAIN ONCE THIS SHIFT AND MEDICATED PER EMAR. PATIENT HAS NOT COMPLAINED OF SOB, NAUSEA OR VOMITTING THIS SHIFT. BED IN LOCKED AND LOWEST POSITION. CALL LIGHT IN PLACE. WILL MONITOR UNTIL SHIFT CHANGE.
[2023-07-28 19:18] VITALS: BP 124/72
[2023-07-29 03:24] VITALS: BP 141/76
--- NOTE | 2023-07-29 05:59 | NUR ---
SKIDDER RUNNER SUMMARY VSS. ALTHOUGH VERBAL RESPONSE MORE APPROPRIATE THAN NOTED 24 HR AGO, CONTINUES TO BE CONFUSED AND DIFFICULT TO REDIRECT. BILAT WRIST SOFT RESTRAINTS CONTINUE TO PREVENT PULLING OUT IV, ETC. INCONT OF URINE AND FECES, CHANGED INTERMITTENTLY. IV ANTIBIOTICS INFUSING. HAS BEEN NPO SINCE MIDNIGHT FOR PROCEDURE TODAY. HAS BEEN RESTING QUIETLY INTERMITTENTLY THROUGHOUT SHIFT. CALL LIGHT IN [place]. RAILS UP X 3 FOR SAFETY. WILL CONTINUE TO MONITOR
[2023-07-29 06:31] LABS: BASOPHILS ABSOLUTE AUTO 0.03 K/mm3 (0.00-0.23); BASOPHILS PERCENT AUTO 0 % (0-2); EOSINOPHILS ABSOLUTE AUTO 0.01 K/mm3 (0.00-0.68); EOSINOPHILS PERCENT AUTO 0 % (0-6); Hematocrit 25.1 % (37.0-53.0); Hemoglobin 7.8 g/dL (13.5-17.5); IMMATURE GRAN ABSOLUTE AUTO 0.11 K/mm3 (0.00-0.10); IMMATURE GRAN PERCENT AUTO 1 % (0-1); LYMPHOCYTES ABSOLUTE AUTO 2.26 K/mm3 (0.84-5.20); LYMPHOCYTES PERCENT AUTO 17 % (21-46); MONOCYTES ABSOLUTE AUTO 1.11 K/mm3 (0.16-1.47); MONOCYTES PERCENT AUTO 8 % (4-13); Mean Corpuscular HGB 24.5 pg (26.0-34.0); Mean Corpuscular HGB Conc 31.1 g/dL (31.5-36.5); Mean Corpuscular Volume 79 fL (80-100); Mean Platelet Volume 11.9 fL (9.1-12.4); NEUTROPHILS ABSOLUTE AUTO 10.14 K/mm3 (1.96-9.15); NEUTROPHILS PERCENT AUTO 74 % (41-73); Platelet Count 197 K/mm3 (150-400); RDW Coefficient Variation 22.4 % (11.7-14.2); RDW Standard Deviation 57.8 fL (35.1-46.3); Red Blood Cell Count 3.18 M/mm3 (4.30-5.90); White Blood Cell Count 13.66 K/mm3 (4.00-11.30)
[2023-07-29 06:50] LABS: Albumin, Blood 1.4 g/dL (3.4-5.0); Albumin/Globulin Ratio 0.3 (0.8-1.8); Bilirubin, Total 0.8 mg/dL (0.1-1.0); Bun/Creatinine Ratio 41.4 (12.0-20.0); Calcium, Blood 9.1 mg/dL (8.5-10.1); Creatinine, Blood 0.68 mg/dL (0.60-1.20); Globulin, Blood 4.6 g/dL (2.2-4.0); Potassium, Blood 3.7 mmol/L (3.5-5.5)
[2023-07-29 07:18] VITALS: BP 121/75
--- NOTE | 2023-07-29 08:44 | NUR ---
PHONE CALL TO DR BOLAND TO VERIFY ORAL MEDS THIS AM. DR ORDER TO WAIT ON PROZAC AND WELLBUTRIN UNTIL AFTER PROCEDURE AND THEN GIVE THOSE MEDICATIONS. DR NOTIFIED BG AT 0607 WAS 282 AND 2 UNITS INSULIN WAS GIVEN AT 0541, PER DR OLIVARES TO WAIT UNTIL AFTER PROCEDURE AROUND NOON FOR NEXT Q6H CHECK. ALSO REGARDING LONG ACTING INSULIN GIVE THIS AM
--- NOTE | 2023-07-29 11:09 | NUR ---
PATIENT LEFT UNIT AT 1100 FOR PROCEDURE AT SHOES SALESPERSON.
[2023-07-29 12:10] VITALS: BP 112/71
[2023-07-29 15:50] VITALS: BP 132/84
[2023-07-29 19:09] VITALS: BP 129/72
--- NOTE | 2023-07-29 19:23 | NUR ---
SHIFT SUMMARY TOLERATING PO INTAKE THICKENED AFTER PROCEDURE TODAY. BLOOD SUGAR [address] BOLAND NOTIFIFED, ORDERS RECIEVED TO DC D5 AND TO GIVE 15 UNITS HUMULIN, THEN CHANGE TO HIGH SLIDING SCALE. PATIENT SPEAKING IN FULL SENTENCES, AOX4 BY END OF SHIFT, AWARE OF WHERE HE IS. BED IN LOW POSITION. CALL LIGHT IN REACH. FAMILY AT BEDSIDE.
--- NOTE | 2023-07-30 03:17 | NUR ---
PLATING EQUIPMENT TENDER SUMMARY VSS. VERBAL RESPONSE UNDERSTANDABLE, SPEAKS IN SENTENCES BUT STILL HAVING EPISODES OF CONFUSION. CALLS OUT AT INTERVALS. TOLERATING MEDS WITH APPLESAUCE AND THICKENED LIQUIDS. ANTIBIOTICS INFUSING AT INTERVALS AND PAIN MEDS PER MD ORDERS - SEE MAR FOR DETAILS. ACCU CHECKS ACHS, INSULIN COVERAGE ADMINISTERED. HAS BEEN RESTING QUIETLY OTHERWISE. REDIRECTED NEEDED. CALL LIGHT IN REACH, BED ALARM ON FOR SAFETY. WILL CONT TO MONITOR.
[2023-07-30 05:20] VITALS: BP 133/81
[2023-07-30 06:01] LABS: BASOPHILS ABSOLUTE AUTO 0.02 K/mm3 (0.00-0.23); BASOPHILS PERCENT AUTO 0 % (0-2); EOSINOPHILS ABSOLUTE AUTO 0.05 K/mm3 (0.00-0.68); EOSINOPHILS PERCENT AUTO 0 % (0-6); Hematocrit 23.7 % (37.0-53.0); Hemoglobin 7.4 g/dL (13.5-17.5); IMMATURE GRAN ABSOLUTE AUTO 0.08 K/mm3 (0.00-0.10); IMMATURE GRAN PERCENT AUTO 1 % (0-1); LYMPHOCYTES ABSOLUTE AUTO 2.46 K/mm3 (0.84-5.20); LYMPHOCYTES PERCENT AUTO 22 % (21-46); MONOCYTES ABSOLUTE AUTO 0.96 K/mm3 (0.16-1.47); MONOCYTES PERCENT AUTO 9 % (4-13); Mean Corpuscular HGB 24.9 pg (26.0-34.0); Mean Corpuscular HGB Conc 31.2 g/dL (31.5-36.5); Mean Corpuscular Volume 80 fL (80-100); Mean Platelet Volume 11.8 fL (9.1-12.4); NEUTROPHILS ABSOLUTE AUTO 7.73 K/mm3 (1.96-9.15); NEUTROPHILS PERCENT AUTO 68 % (41-73); Platelet Count 178 K/mm3 (150-400); RDW Coefficient Variation 22.7 % (11.7-14.2); Red Blood Cell Count 2.97 M/mm3 (4.30-5.90)
[2023-07-30 06:14] LABS: Bun/Creatinine Ratio 33.4 (12.0-20.0); Calcium, Blood 9.1 mg/dL (8.5-10.1); Creatinine, Blood 0.75 mg/dL (0.60-1.20); Potassium, Blood 3.7 mmol/L (3.5-5.5)
[2023-07-30 07:40] VITALS: BP 136/89
[2023-07-30 15:24] VITALS: BP 112/69
--- NOTE | 2023-07-30 18:43 | NUR ---
SHIFT SUMMARY PATIENT WITH NO ADVERSE EVENTS TODAY, HE IS BECOMING MORE AWARE OF HEARING AND SEEING THINGS THAT ARE NOT THERE, PREVIOUSLLY THOUGHT IT WAS ALL REAL. PATIENT UP WITH PT TODAY TO EDGE OF BED AND ONE STAND UP TO SCOOT UP IN BED. HE GOT LIGHTHEADED SITTING AT EDGE OF BED BUT BP WAS 120/74, HR 104. PATIENT RECOVERED QUICKLY AFTER AND DENIES ANY SHORTNESS OF BREATH OR DIZZINESS ONCE LAYING BACK DOWN, HR RETURNS TO 80S. PATIENT MEDICATED TODAY FOR ARM PAIN PER EMAR. BED IN LOW POSITION, CALL LIGHT IN REACH. BED ALARM ON WHEN FAMILLY NOT PRESENT.
[2023-07-30 19:39] VITALS: BP 140/70
[2023-07-31 03:36] VITALS: BP 143/79
[2023-07-31 05:18] LABS: BASOPHILS ABSOLUTE AUTO 0.03 K/mm3 (0.00-0.23); BASOPHILS PERCENT AUTO 0 % (0-2); EOSINOPHILS ABSOLUTE AUTO 0.09 K/mm3 (0.00-0.68); EOSINOPHILS PERCENT AUTO 1 % (0-6); Hematocrit 24.9 % (37.0-53.0); Hemoglobin 7.8 g/dL (13.5-17.5); IMMATURE GRAN ABSOLUTE AUTO 0.08 K/mm3 (0.00-0.10); IMMATURE GRAN PERCENT AUTO 1 % (0-1); LYMPHOCYTES ABSOLUTE AUTO 2.64 K/mm3 (0.84-5.20); LYMPHOCYTES PERCENT AUTO 26 % (21-46); MONOCYTES ABSOLUTE AUTO 0.97 K/mm3 (0.16-1.47); MONOCYTES PERCENT AUTO 10 % (4-13); Mean Corpuscular HGB 25.4 pg (26.0-34.0); Mean Corpuscular HGB Conc 31.3 g/dL (31.5-36.5); Mean Corpuscular Volume 81 fL (80-100); NEUTROPHILS ABSOLUTE AUTO 6.35 K/mm3 (1.96-9.15); NEUTROPHILS PERCENT AUTO 63 % (41-73); Platelet Count 177 K/mm3 (150-400); RDW Coefficient Variation 22.5 % (11.7-14.2); RDW Standard Deviation 64.6 fL (35.1-46.3); Red Blood Cell Count 3.07 M/mm3 (4.30-5.90); White Blood Cell Count 10.16 K/mm3 (4.00-11.30)
--- NOTE | 2023-07-31 05:31 | NUR ---
SHIFT SUMMARY NOC PT A/O TO SELF, AND FAMILY, HAD A COUPLE EPISODES OF VISUAL/AUDITORY HALLUCINATIONS, WELL PARANOID THOUGHTS ABOUT FEMALE NURSING STAFF TALKING BAD ABOUT HIM. PT HAS PG IN FRITZ THAT NO LONGER DRAWS. PT AGREED TO TRY CONDOM CATHETER TO HELP WITH INCONTINENCE. PT IS AWAITING SNF PLACEMENT FOR REHAB. PT HGB 7.4 YESTERDAY MORNING, AWAITING AM CBC DRAW. PT IS CURRENTLY RESTING WITH BED ALARM ON, BED IN LOWEST POSITION, AND CALL LIGHT WITHIN REACH.
[2023-07-31 06:33] LABS: Bun/Creatinine Ratio 33.1 (12.0-20.0); Calcium, Blood 9.4 mg/dL (8.5-10.1); Creatinine, Blood 0.73 mg/dL (0.60-1.20); Potassium, Blood 3.7 mmol/L (3.5-5.5)
[2023-07-31 07:12] VITALS: BP 143/89
--- NOTE | 2023-07-31 08:51 | NUR ---
Spiritual care visit conducted. Patient is sitting up in bed and alert.He states that he feels he was given a lethal injection of vodka and that he is palomo to be alive. He tells me that he may be "breaking up" with his ex- and that the man she likes is "funny but carries a gun" and that scares him. He is confused about many things but states that his mind is getting more clear. He does not engage in conversation about his children well but passing on to another conversation. He tells me that he needs to do much better with his "raymond," but welcomes prayer when it is suggested. I normalize his experience, reinforce helpful attitudes and provide therapeutic listening and prayer. Real repsonded well and showed signs of an elevated mood. I will continue to reamin available to patient and family.
--- NOTE | 2023-07-31 19:28 | NUR ---
SHIFT SUMMARY: PT A&O X2-3. PLEASANT AND COOPERATIVE WITH CARE. PT CONFUSED THIS AM WANTING TO CALL POLICE D/T "LETHAL INJECTION" GIVEN IN THE HOSPITAL. PT ABLE TO SWALLOW THIN LIQUIDS WELL THIS AM. AFTER OT FINISHED THERAPY, PT BECAME VERY LETHARGIC. SWALLOW EVAL COMPLETED AND CHOKED ON THIN LIQUIDS AND FOOD. PT DIET CHANGED TO PUREE AND HONEY THICK LIQUIDS. PT C/O BACK PAIN WITH A FACE SCALE OF 7/10. PAIN MEDICATION GIVEN PER EMAR. FAMILY CONCERNED OF EDEMA IN BILAT UPPER EXTREMETIES. HOSPITALIST NOTIFIED AND ORDERED BILAT UPPER VENOUS DUPLEX. RESULTS NOT READ YET. PT TO RECEIVE XR ESOPHAGUS W/ SPEECH PATHOLOGY TOMORROW. PT HAD EPISODE OF HYPOGLYCEMIA PRIOR TO DINNER OF 49. PT RECEIVED 3 CUPS OF JUICE W/ BS RECEIVED AFTER EACH. FINAL BS OF 107. PT MUCH MORE ALERT PRIOR TO END OF SHIFT.
[2023-07-31 19:54] VITALS: BP 130/80
[2023-08-01 03:49] VITALS: BP 156/71
--- NOTE | 2023-08-01 05:07 | NUR ---
SHIFT SUMMARY NOC PT A/O X 2-3. PLEASANT AND COOPERATIVE WITH CARE. PT HAS NOT HAD AUDITORY/VISUAL HALLUCINATIONS TONIGHT. PT WELLBUTRIN WAS HELD PER PT REQUEST. PT CBG HAVE BEEN IN 170'S AFTER SHIFT CHANGE WITH CNI. PT HAS BEEN INC OF URINE X 3. PT HAS BARIUM SWALLOW TEST SCHEDULED FOR 08/01/23. PT RECEIVING ABX FOR ENDOCARDITIS WITH VEGETATION. PT MEDICATED FOR PAIN X 1, BUT OTHERWISE HAD NO PAIN ISSUES TONIGHT. PT LUE SWELLING HAS GONE DOWN SIGNIFICANTLY AFTER ELEVATING ON PILLOW. PT IS CURRENTLY RESTING WITH BED ALARM ON, BED IN LOWEST POSITION, AND CALL LIGHT WITHIN REACH.
[2023-08-01 06:59] LABS: BASOPHILS ABSOLUTE AUTO 0.03 K/mm3 (0.00-0.23); BASOPHILS PERCENT AUTO 0 % (0-2); EOSINOPHILS ABSOLUTE AUTO 0.04 K/mm3 (0.00-0.68); EOSINOPHILS PERCENT AUTO 1 % (0-6); Hematocrit 25.3 % (37.0-53.0); Hemoglobin 7.8 g/dL (13.5-17.5); IMMATURE GRAN ABSOLUTE AUTO 0.08 K/mm3 (0.00-0.10); IMMATURE GRAN PERCENT AUTO 1 % (0-1); LYMPHOCYTES PERCENT AUTO 23 % (21-46); MONOCYTES ABSOLUTE AUTO 0.87 K/mm3 (0.16-1.47); MONOCYTES PERCENT AUTO 10 % (4-13); Mean Corpuscular HGB 25.7 pg (26.0-34.0); Mean Corpuscular HGB Conc 30.8 g/dL (31.5-36.5); Mean Corpuscular Volume 83 fL (80-100); Mean Platelet Volume 11.3 fL (9.1-12.4); NEUTROPHILS ABSOLUTE AUTO 5.84 K/mm3 (1.96-9.15); NEUTROPHILS PERCENT AUTO 66 % (41-73); Platelet Count 148 K/mm3 (150-400); RDW Coefficient Variation 22.6 % (11.7-14.2); RDW Standard Deviation 65.9 fL (35.1-46.3); Red Blood Cell Count 3.04 M/mm3 (4.30-5.90); White Blood Cell Count 8.86 K/mm3 (4.00-11.30)
[2023-08-01 07:13] LABS: Bun/Creatinine Ratio 28.1 (12.0-20.0); Calcium, Blood 9.3 mg/dL (8.5-10.1); Creatinine, Blood 0.75 mg/dL (0.60-1.20); Potassium, Blood 3.7 mmol/L (3.5-5.5)
[2023-08-01 07:29] VITALS: BP 121/73
[2023-08-01 16:57] VITALS: BP 106/67
--- NOTE | 2023-08-01 18:04 | NUR ---
SHIFT SUMMARY: PATIENT IS AWAKE, ALERT AND ORIENTED TO SELF, PLACED AND FAMILY MEMBERS AT BEDSIDE T/O SHIFT. PATIENT HAD BARIUN SWALLOW DONE TODAY, DIET CHANGED TO [facility] SOFT, THIN LIQUID, MEDS WHOLE c APPLE SAUCE AND NO STRAW PER ST. PATIENT ABLE TO PARTICPATE c PT/OT MOBILITY IN BED TODAY, RECOMMENDED SNF. PATIENT DENIES CP/PRESSURE, N/V, DIZZINESS AND SOB. PATIENT REPORTS PAIN TO SHOULDER/BACK, MEDICATED c PO PRN PAIN MEDS c GOOD EFFECT. PLUS 3 EDEMA TO BUE'S AND PITTING EDEMA TO BLE'S, RECEIVED OT DOSE OF IV LASIX. PATIENT INCONTINENCE OF BLADDER, BANDAR CARE AND ATTENDS CHANGED T/O SHIFT. FEED ASSIST, AND ORAL CARE DONE. PATIENT RECEIVED IV ABX AND SCHEDULED MEDS PER EMAR. PATIENT BS BEFORE BREAKFAST-238, BEFORE LUNCH-234 AND BEFORE DINNER-46, GIVEN 240 CC APPLE JUICE, AND PUDDING. PATIENT BS WAS RECHECKED 30 MINS LATER AND WENT UP TO 71. VITAL SIGNS REVIEWED. PIV TO R FOREARM AND POWERGLIDE TO BOBBY SALINE LOCKED. BED ALRM ON FOR SAFETY. CALL LIGHT IN REACH.
[2023-08-01 19:42] VITALS: BP 123/65
--- NOTE | 2023-08-02 03:44 | NUR ---
SHIFT SUMMARY PT A&O TO SELF AND FAMILY AT BEDSIDE. PT IS INCONTINENT OF BOWEL/BLADDER, BANDAR CARE AND ATTENDS CHANGED NEEDED. PT TOLERATED [facility] SOFT DIET WITH THIN LIQUIDS. TOOK PILLS WHOLE WITH APPLESAUCE ONE AT A TIME. NO STRAWS. PT COMPLAINED OF SHOULDER PAIN--MEDICATED PER EMAR. HS BLOOD SUGAR 146. PICC LINE TO BOBBY AND PIV TO RFA. ABX GIVEN. PT HAS BEEN CALM AND COOPERATIVE WITH CARE. BED KEPT IN LOWEST POSITION WITH CALL LIGHT WITHIN REACH. WILL CONTINUE TO MONITOR.
[2023-08-02 04:51] VITALS: BP 125/67
[2023-08-02 06:26] LABS: BASOPHILS ABSOLUTE AUTO 0.02 K/mm3 (0.00-0.23); BASOPHILS PERCENT AUTO 0 % (0-2); EOSINOPHILS ABSOLUTE AUTO 0.14 K/mm3 (0.00-0.68); EOSINOPHILS PERCENT AUTO 2 % (0-6); Hematocrit 23.6 % (37.0-53.0); Hemoglobin 7.3 g/dL (13.5-17.5); Mean Corpuscular HGB 25.6 pg (26.0-34.0); Mean Corpuscular HGB Conc 30.9 g/dL (31.5-36.5); Mean Corpuscular Volume 83 fL (80-100); Mean Platelet Volume 11.9 fL (9.1-12.4); Platelet Count 174 K/mm3 (150-400); RDW Coefficient Variation 22.7 % (11.7-14.2); RDW Standard Deviation 67.7 fL (35.1-46.3); Red Blood Cell Count 2.85 M/mm3 (4.30-5.90)
[2023-08-02 06:40] VITALS: BP 125/67
[2023-08-02 06:44] LABS: Alanine Aminotransfer (ALT/SGP 9 U/L (12-78); Albumin, Blood 1.3 g/dL (3.4-5.0); Albumin/Globulin Ratio 0.3 (0.8-1.8); Alk Phos 85 U/L (50-136); Anion Gap 2 mmol/L (6-16); Aspartate Aminotrans (AST/SGOT 24 U/L (12-37); Bilirubin, Total 0.6 mg/dL (0.1-1.0); Blood Urea Nitrogen 19 mg/dL (8-24); Bun/Creatinine Ratio 25.4 (12.0-20.0); CO2, Blood 28 mmol/L (21-32); Calcium, Blood 9.3 mg/dL (8.5-10.1); Chloride, Blood 105 mmol/L (98-108); Creatinine, Blood 0.75 mg/dL (0.60-1.20); Globulin, Blood 4.7 g/dL (2.2-4.0); Glomerular Filtration Rate 98 (60-); Glucose, Blood 172 mg/dL (70-99); Potassium, Blood 3.6 mmol/L (3.5-5.5); Sodium, Blood 135 mmol/L (136-145); Triglycerides 93 mg/dL (30-160)
[2023-08-02 07:10] LABS: IMMATURE GRAN ABSOLUTE AUTO 0.06 K/mm3 (0.00-0.10); IMMATURE GRAN PERCENT AUTO 1 % (0-1); LYMPHOCYTES ABSOLUTE AUTO 2.08 K/mm3 (0.84-5.20); LYMPHOCYTES PERCENT AUTO 28 % (21-46); MONOCYTES ABSOLUTE AUTO 0.67 K/mm3 (0.16-1.47); MONOCYTES PERCENT AUTO 9 % (4-13); NEUTROPHILS ABSOLUTE AUTO 4.43 K/mm3 (1.96-9.15); NEUTROPHILS PERCENT AUTO 60 % (41-73)
[2023-08-02 07:40] VITALS: BP 118/67
[2023-08-02 16:17] VITALS: BP 118/88
--- NOTE | 2023-08-02 17:51 | NUR ---
SHIFT SUMMARY: PATIENT IS ALERT AND ORIENTED TO SELF, PLACED, CURRENT SITUATIONS AND ABLE TO TELL THIS RN THE MONTH AND YEAR, BUT COULD NOT RECALL THE SPECIFIC DATE OF THE DAY. PATIENT RECEIVED BEDBATH AND LINEN CHANGED TODAY. PATIENT WORK c PT MOBILITY IN BED AND TOLERATED WELL. PLUS 3 EDEMA TO BUE'S AND PITTING EDEMA TO BLE'S, BUE/BLE ELEVATED ON PILLOWS T/O SHIFT. PATIENT ON [facility] SOFT DIET c THIN LIQUID, FEEDER AND TOLERATED WELL. PATIENT INCONTINENCE OF BLADDER, BANDAR CARE AND ATTENDS CHANGED T/O SHIFT. PATIENT BS RANGES 185-254, MEDICATED c INSULIN COVERAGE, RECIEVED IV ABX AND SCHEDULED MEDS PER EMAR. PATIENT DENIES CP/PRESSURE, SOB, N/V AND DIZZINESS. PAIN TO LOWER BACK, MEDICATED c PRN PO MEDS c GOOD EFFECT. VITAL SIGNS REVIEWED. PIV TO R FOREARM AND PICC LINE TO BOBBY SALINE LOCKED. BED ALARM ON FOR SAFETY. CALL LIGHT IN REACH.
[2023-08-02 19:55] VITALS: BP 128/66
[2023-08-03 02:10] VITALS: BP 130/74
--- NOTE | 2023-08-03 03:53 | NUR ---
SHIFT SUMMARY PT A&O X3, CALM AND COOPERATIVE WITH CARE. AT BEDSIDE AT START OF SHIFT. PT CURRENTLY FEEDER ON [facility] SOFT DIET WITH THIN LIQUIDS, TOLERATING WELL. RECEIVED SCHEDULED ABX, MEDICATIONS, AND MEDICATED PER EMAR FOR SHOULDER/BACK PAIN. PT INCONTINENT OF BOWEL AND BLADDER, BANDAR CARE AND ATTENDS CHANGED NEEDED. CBG AT HS 237. BED KEPT IN LOWEST POSITION WITH CALL LIGHT WITHIN REACH. WILL CONTINUE TO MONITOR.
[2023-08-03 06:27] LABS: BASOPHILS ABSOLUTE AUTO 0.02 K/mm3 (0.00-0.23); BASOPHILS PERCENT AUTO 0 % (0-2); EOSINOPHILS ABSOLUTE AUTO 0.09 K/mm3 (0.00-0.68); EOSINOPHILS PERCENT AUTO 1 % (0-6); Hematocrit 22.7 % (37.0-53.0); Hemoglobin 7.1 g/dL (13.5-17.5); IMMATURE GRAN ABSOLUTE AUTO 0.05 K/mm3 (0.00-0.10); IMMATURE GRAN PERCENT AUTO 1 % (0-1); LYMPHOCYTES ABSOLUTE AUTO 1.51 K/mm3 (0.84-5.20); LYMPHOCYTES PERCENT AUTO 24 % (21-46); MONOCYTES ABSOLUTE AUTO 0.61 K/mm3 (0.16-1.47); MONOCYTES PERCENT AUTO 10 % (4-13); Mean Corpuscular HGB 25.4 pg (26.0-34.0); Mean Corpuscular HGB Conc 31.3 g/dL (31.5-36.5); Mean Corpuscular Volume 81 fL (80-100); Mean Platelet Volume 11.3 fL (9.1-12.4); NEUTROPHILS ABSOLUTE AUTO 4.04 K/mm3 (1.96-9.15); NEUTROPHILS PERCENT AUTO 64 % (41-73); Platelet Count 167 K/mm3 (150-400); RDW Coefficient Variation 21.7 % (11.7-14.2); RDW Standard Deviation 64.9 fL (35.1-46.3); White Blood Cell Count 6.32 K/mm3 (4.00-11.30)
[2023-08-03 06:47] LABS: Calcium, Blood 9.1 mg/dL (8.5-10.1); Creatinine, Blood 0.68 mg/dL (0.60-1.20); Potassium, Blood 3.6 mmol/L (3.5-5.5)
[2023-08-03 07:13] VITALS: BP 129/78
[2023-08-03 15:36] VITALS: BP 124/64
--- NOTE | 2023-08-03 17:57 | NUR ---
SHIFT SUMMARY: OVERALL, PATIENT MENTATION HAS IMPROVED. PATIENT A/OX3. CALM, PLEASANT AND COOPERATIVE c CARE. PATIENT BS RANGES 200-251, RECEIVED INSULIN COVERAGE, IV ABX AND SCHEDULED MEDS PER EMAR. PATIENT DENIES CP/PRESSURE, N/V, SOB AND DIZZINESS. PAIN TO SHOULDER/NECK/BACK, WELL CONTROLLED c PRN PAIN MEDS PER EMAR. PATIENT STILL A FEEDER, [facility] SOFT DIET c THIN LIQUID, TOLERATED WELL. PATIENT INCONTINENCE OF BLADDER, BANDAR CARE AND ATTENDS CHANGED T/O SHIFT. ORAL CARE DONE AND REPOSITIONED T/O SHIFT. VITAL SIGNS REVIEWED. BED ALARM ON FOR SAFETY. CALL LIGHT IN REACH.
[2023-08-03 19:54] VITALS: BP 137/72
--- NOTE | 2023-08-04 03:20 | NUR ---
SHIFT SUMMARY PT A&O X3, CALM AND COOPERATIVE WITH CARE. COMPLAINTS OF SHOULDER AND BACK PAIN. MEDICATED PER EMAR WITH RELIEF. CBG AT HS 218. GAVE SCHEDULAED MEDS AND ABX. PT IS INCONTINENT OF BOWEL AND BLADDER, ATTENDS AND BANDAR CARE PROVIDED NEEDED. PT IS STILL A FEEDER AND MAINTAINING [facility] SOFT DIET AND THIN LIQUIDS WITH ASSISTANCE. EDEMA PRESENT IN BUE AND BLE. PLAN IS TO DC TO SNF FOR [facility] OPERATOR ABX THERAPY. BED KEPT IN THE LOWEST POSITION IWTH CALL LIGHT IN REACH. PT CALLS APPROPRIATELY FOR NEEDS.
[2023-08-04 03:35] VITALS: BP 127/71
[2023-08-04 06:24] LABS: BASOPHILS ABSOLUTE AUTO 0.01 K/mm3 (0.00-0.23); BASOPHILS PERCENT AUTO 0 % (0-2); EOSINOPHILS ABSOLUTE AUTO 0.04 K/mm3 (0.00-0.68); EOSINOPHILS PERCENT AUTO 1 % (0-6); Hematocrit 22.5 % (37.0-53.0); Hemoglobin 7.1 g/dL (13.5-17.5); IMMATURE GRAN PERCENT AUTO 2 % (0-1); LYMPHOCYTES ABSOLUTE AUTO 1.22 K/mm3 (0.84-5.20); LYMPHOCYTES PERCENT AUTO 21 % (21-46); MONOCYTES ABSOLUTE AUTO 0.67 K/mm3 (0.16-1.47); MONOCYTES PERCENT AUTO 12 % (4-13); Mean Corpuscular HGB 25.8 pg (26.0-34.0); Mean Corpuscular HGB Conc 31.6 g/dL (31.5-36.5); Mean Corpuscular Volume 82 fL (80-100); Mean Platelet Volume 11.3 fL (9.1-12.4); NEUTROPHILS ABSOLUTE AUTO 3.77 K/mm3 (1.96-9.15); NEUTROPHILS PERCENT AUTO 65 % (41-73); Platelet Count 169 K/mm3 (150-400); RDW Coefficient Variation 22.1 % (11.7-14.2); RDW Standard Deviation 65.8 fL (35.1-46.3); Red Blood Cell Count 2.75 M/mm3 (4.30-5.90); White Blood Cell Count 5.81 K/mm3 (4.00-11.30)
[2023-08-04 06:52] LABS: Bun/Creatinine Ratio 26.7 (12.0-20.0); Calcium, Blood 9.3 mg/dL (8.5-10.1); Creatinine, Blood 0.67 mg/dL (0.60-1.20); Potassium, Blood 3.8 mmol/L (3.5-5.5)
[2023-08-04 07:44] VITALS: BP 142/77
[2023-08-04 11:51] LABS: SARS-Cov-2 (COVID-19) PCR, MMC NEGATIVE (NEGATIVE)
[2023-08-04] MEDS ORDERED: CEFAZOLIN2 GM/50 M3 IV (12:05)
[2023-08-04] MEDS ORDERED: LISI5 PO (12:06)
[2023-08-04] MEDS ORDERED: OXAYDO5 M1 PO (12:10)
--- NOTE | 2023-08-04 13:30 | NUR ---
REPORT CALLED TO SIRIA AT [facility]. PT GOTTEN READY TO GO. TOMMY HERE WITH [facility] FOR TRANSPORT. TO [facility] AFTER BEING TRANSFERRED TO [facility]. BELONNGINGS WITH S.O. AND PT. PICC REMAINED IN PLACE FOR HALFWAY ANTIBIOTICC TREAMTMENT.
== END 2023-08-04 13:18 | DRG 871 ==
LOC: ER 11:32 → MEDS 23:46 → ER 23:46 → MEDS 23:46 → ENPENDDIS 08-04 10:47 → MEDS 08-04 13:18
PROVIDERS: Emergency Medicine; Family Medicine; Internal Medicine; Internal Medicine Endocrinology, Diabetes & Metabolism; ADMIT Internal Medicine
PROC: B24BZZ4 Ultrasonography of Heart with Aorta, Transesophageal (ICD-10-PCS; principal; 2023-07-29)
DX: A41.01 Sepsis due to Methicillin susceptible Staphylococcus aureus (principal); G93.41 Metabolic encephalopathy; I60.9 Nontraumatic subarachnoid hemorrhage, unspecified; I63.40 Cerebral infarction due to embolism of unspecified cerebral artery; E87.1 Hypo-osmolality and hyponatremia; N17.9 Acute kidney failure, unspecified; I38 Endocarditis, valve unspecified; E87.6 Hypokalemia; G89.29 Other chronic pain; M51.9 Unspecified thoracic, thoracolumbar and lumbosacral intervertebral disc disorder; E86.0 Dehydration; B18.2 Chronic viral hepatitis C; I10 Essential (primary) hypertension; F41.8 Other specified anxiety disorders; E11.65 Type 2 diabetes mellitus with hyperglycemia; R32 Unspecified urinary incontinence; E53.8 Deficiency of other specified B group vitamins; D69.6 Thrombocytopenia, unspecified; R13.12 Dysphagia, oropharyngeal phase; Z79.4 Long term (current) use of insulin; Z28.21 Immunization not carried out because of patient refusal
CPT/HCPCS: 36415; 36569; 51702; 70450; 70551; 72040; 72070; 72156; 72157; 72158; 73030; 74230; 80048; 80053; 80069; 80202; 81001; 82140; 82550; 82607; 82728; 82746; 82803; 82947; 83090; 83540; 83550; 83735; 83880; 84100; 84425; 84439; 84443; 84478; 85025; 85610; 85651; 85730; 86140; 87040; 87077; 87147; 87186; 92526; 92610; 92611; 93005; 93010; 93306; 93312; 93325; 93970; 94760; 94762; 96361; 96365; 96366; 96372; 96374; 96375; 96376; 97110; 97112; 97161; 97164; 97166; 97168; 97530; 97535; 99285-25; A9270; A9579; C1751; C9113; G0378; J0360; J0612; J0690; J0696; J1170; J1650; J1815; J1885; J1940; J2060; J2405; J2704; J3010; J3370; J3411; J3475; J3480; J7030; J7050; J7060; J7070; P9047; U0002

== ENCOUNTER 2023-08-14 14:33 | Inpatient (IN) | payer MEDICARE, OTHER ==
[~2023-08-14] VITALS: Ht 170.2 cm; Wt 63.6 kg
[~2023-08-14 14:33] MED LIST changes: +ACTOS30 MG PO; +ATOMOXETINE HCL40 M3 PO; +BUPR75 PO; +BUSPIRONE HCL10 M6 PO; +CEFAZOLIN2 GM/50 M3 IV; +CELEXA40 M9 PO; +CITALOPRAM HBR20 M9 PO; +CYCL10 PO; +FUROSEMIDE40 MG PO; +HYDCHL25 PO; +JARDIANCE10 MG PO; +KLOR-CON 1010 ME9 PO; +LISI5 PO; +MOBIC15 MG PO; +PANTOPRAZOLE SO40 M2 PO; +PROZAC2010 PO; +SEMGLEE (Y100 UNIT/2 SC; +Simvastatin20 MG PO; +Ventolin/Prove6.7 GM INH
[2023-08-14 15:20] LABS: BASOPHILS ABSOLUTE AUTO 0.04 K/mm3 (0.00-0.23); BASOPHILS PERCENT AUTO 0 % (0-2); EOSINOPHILS ABSOLUTE AUTO 0.07 K/mm3 (0.00-0.68); EOSINOPHILS PERCENT AUTO 1 % (0-6); Hematocrit 26.8 % (37.0-53.0); Hemoglobin 8.3 g/dL (13.5-17.5); IMMATURE GRAN ABSOLUTE AUTO 0.17 K/mm3 (0.00-0.10); IMMATURE GRAN PERCENT AUTO 2 % (0-1); LYMPHOCYTES ABSOLUTE AUTO 2.51 K/mm3 (0.84-5.20); LYMPHOCYTES PERCENT AUTO 23 % (21-46); MONOCYTES ABSOLUTE AUTO 0.91 K/mm3 (0.16-1.47); MONOCYTES PERCENT AUTO 8 % (4-13); Mean Corpuscular HGB 24.9 pg (26.0-34.0); Mean Corpuscular Volume 81 fL (80-100); NEUTROPHILS PERCENT AUTO 66 % (41-73); Platelet Count 293 K/mm3 (150-400); RDW Coefficient Variation 19.1 % (11.7-14.2); RDW Standard Deviation 56.1 fL (35.1-46.3); Red Blood Cell Count 3.33 M/mm3 (4.30-5.90)
[2023-08-14 15:36] LABS: Albumin, Blood 1.8 g/dL (3.4-5.0); Albumin/Globulin Ratio 0.3 (0.8-1.8); Bilirubin, Total 0.3 mg/dL (0.1-1.0); Bun/Creatinine Ratio 21.2 (12.0-20.0); Calcium, Blood 8.9 mg/dL (8.5-10.1); Creatinine, Blood 0.71 mg/dL (0.60-1.20); Globulin, Blood 5.4 g/dL (2.2-4.0); Potassium, Blood 3.5 mmol/L (3.5-5.5); Total Protein, Blood 7.2 g/dL (6.4-8.2)
[2023-08-14 15:53] LABS: International Normalized Ratio 1.11; Prothrombin Time Results 11.6 Sec (9.7-11.5)
[2023-08-14 16:40] LABS: Source, Urine Voided
[2023-08-14 16:57] LABS: Appearance, Urine Clear (Clear); Bilirubin, Urine Neg (Neg); Blood, Urine Neg (Neg); Color, Urine Yellow (P-Yellow); Glucose Qualitative, Urine 4+ (Neg); Ketones, Urine Neg (Neg); Leukocyte Esterase, Urine Neg (Neg); Nitrite, Urine Neg (Neg); Protein, Urine Neg (Neg); Urobilinogen, Urine NORM (Normal)
[2023-08-14 22:13] VITALS: BP 112/67
[2023-08-15 04:19] VITALS: BP 105/74
--- NOTE | 2023-08-15 06:08 | NUR ---
SHIFT SUMMARY REPORT FROM [facility] ED RN- PT TRANSFERRED BY BEV- BEDSIDE SWALLOW DONE- SPOKE WITH PT RE: DIET AT [facility]- PT REPORTED BEING ON PUREED AND THICKENED LIQUIDS- PT DRANK HONEY THICK LIQUID WITHOUT PROBLEMS, PT TOOK MEDS WHOLE IN HONEY THICK LIQUIDS- CHANGED NPO DIET TO [facility] PUREED AND HONEY THICK LIQUIDS, CALL TO DR. TRONCOSO RE: PICC LINE IN PLACE UPPER ARM- PER H&P AND PT- PT RECENTLY DISCHARGED FOR IV ABX THERAPY- PICC LINE PLACE 08/01- ORDER TO USE PICC LINE- PT CAME IN WITH CONDOM CATH PLACED, REPLACED CONDOM CATH- PT TOLERATED WELL- BED LOW POSITION, CALL LIGHT WITHIN REACH, BED ALARM IN PLACE
[2023-08-15 06:17] LABS: BASOPHILS ABSOLUTE AUTO 0.05 K/mm3 (0.00-0.23); BASOPHILS PERCENT AUTO 1 % (0-2); EOSINOPHILS ABSOLUTE AUTO 0.07 K/mm3 (0.00-0.68); EOSINOPHILS PERCENT AUTO 1 % (0-6); IMMATURE GRAN ABSOLUTE AUTO 0.18 K/mm3 (0.00-0.10); IMMATURE GRAN PERCENT AUTO 2 % (0-1); LYMPHOCYTES ABSOLUTE AUTO 2.43 K/mm3 (0.84-5.20); LYMPHOCYTES PERCENT AUTO 25 % (21-46); MONOCYTES ABSOLUTE AUTO 0.81 K/mm3 (0.16-1.47); MONOCYTES PERCENT AUTO 8 % (4-13); Mean Corpuscular HGB 25.4 pg (26.0-34.0); Mean Corpuscular Volume 79 fL (80-100); Mean Platelet Volume 9.4 fL (9.1-12.4); NEUTROPHILS PERCENT AUTO 64 % (41-73); Platelet Count 283 K/mm3 (150-400); RDW Coefficient Variation 19.2 % (11.7-14.2); RDW Standard Deviation 54.9 fL (35.1-46.3); Red Blood Cell Count 3.15 M/mm3 (4.30-5.90); White Blood Cell Count 9.74 K/mm3 (4.00-11.30)
[2023-08-15 07:59] VITALS: BP 121/82
[2023-08-15 10:04] LABS: Albumin, Blood 1.9 g/dL (3.4-5.0); Albumin/Globulin Ratio 0.4 (0.8-1.8); Bilirubin, Total 0.3 mg/dL (0.1-1.0); Bun/Creatinine Ratio 21.6 (12.0-20.0); Calcium, Blood 8.9 mg/dL (8.5-10.1); Creatinine, Blood 0.65 mg/dL (0.60-1.20); Globulin, Blood 5.2 g/dL (2.2-4.0); Potassium, Blood 3.5 mmol/L (3.5-5.5); Total Protein, Blood 7.1 g/dL (6.4-8.2)
[2023-08-15 16:55] VITALS: BP 121/73
--- NOTE | 2023-08-15 17:37 | NUR ---
DAYSHIFT SUMMARY Patient alert & oriented x3, cooperative with cares. Admitted for stroke symptoms, weakness/deficit noted in left arm, unable to lift/move arm. ECHO & MRI ordered, MD reviewed results with daughter. Patient c/o constant tearing and exudate/crusts forming around eyes, MD ordered eye gtts. Oxycodone given for pain. Patient reporting constant sharp radiating pain in his neck, pain unrelieved by oxy. CBGs WNL, SSI given. VSS. Will contine plan of care. Possible DC home tomorrow.
[2023-08-15 19:38] VITALS: BP 114/73
[2023-08-16 05:49] VITALS: BP 139/77
[2023-08-16 06:05] LABS: BASOPHILS ABSOLUTE AUTO 0.05 K/mm3 (0.00-0.23); BASOPHILS PERCENT AUTO 1 % (0-2); EOSINOPHILS ABSOLUTE AUTO 0.04 K/mm3 (0.00-0.68); EOSINOPHILS PERCENT AUTO 0 % (0-6); Hematocrit 25.9 % (37.0-53.0); Hemoglobin 8.2 g/dL (13.5-17.5); IMMATURE GRAN ABSOLUTE AUTO 0.18 K/mm3 (0.00-0.10); IMMATURE GRAN PERCENT AUTO 2 % (0-1); LYMPHOCYTES ABSOLUTE AUTO 1.95 K/mm3 (0.84-5.20); LYMPHOCYTES PERCENT AUTO 19 % (21-46); MONOCYTES ABSOLUTE AUTO 0.87 K/mm3 (0.16-1.47); MONOCYTES PERCENT AUTO 9 % (4-13); Mean Corpuscular HGB 25.3 pg (26.0-34.0); Mean Corpuscular HGB Conc 31.7 g/dL (31.5-36.5); Mean Corpuscular Volume 80 fL (80-100); Mean Platelet Volume 9.5 fL (9.1-12.4); NEUTROPHILS ABSOLUTE AUTO 7.05 K/mm3 (1.96-9.15); NEUTROPHILS PERCENT AUTO 70 % (41-73); Platelet Count 300 K/mm3 (150-400); RDW Coefficient Variation 18.9 % (11.7-14.2); RDW Standard Deviation 54.6 fL (35.1-46.3); Red Blood Cell Count 3.24 M/mm3 (4.30-5.90); White Blood Cell Count 10.14 K/mm3 (4.00-11.30)
--- NOTE | 2023-08-16 06:40 | NUR ---
SHIFT SUMMARY PT LAYING IN BED WITH EYES CLOSED DURING BEDSIDE REPORT, PT REPORTED PAIN IN LEFT ARM AND HEAD WAS DECREASED SINCE THE PAIN MEDICATION GIVEN, PT REPOSITIONED AND BRIEF CHANGED Q2H T/O NIGHT- PT TOOK MEDICATIONS WHOLE IN THICKENED LIQUIDS, PT TOLERATED WELL, CLENSED BILAT EYES WITH WARM WASHCLOTH BEFORE APPLYING EYE DROPS, PT'S EYES HAVE LESS DRAINAGE COMPARED TO ADMISSION ASSESSMENT- PT USED CALL LIGHT APPROPRIATE T/O NIGHT- BED LOW POSITION, CALL LIGHT WITHIN REACH, BED ALARM IN PLACE
[2023-08-16 06:50] LABS: Albumin, Blood 1.9 g/dL (3.4-5.0); Albumin/Globulin Ratio 0.4 (0.8-1.8); Bilirubin, Total 0.3 mg/dL (0.1-1.0); Bun/Creatinine Ratio 18.4 (12.0-20.0); Calcium, Blood 8.6 mg/dL (8.5-10.1); Creatinine, Blood 0.71 mg/dL (0.60-1.20); Globulin, Blood 5.3 g/dL (2.2-4.0); Potassium, Blood 3.8 mmol/L (3.5-5.5); Total Protein, Blood 7.2 g/dL (6.4-8.2)
[2023-08-16 08:07] VITALS: BP 131/75
[2023-08-16] MEDS ORDERED: ASPI81CH PO (15:02)
[2023-08-16] MEDS ORDERED: BACLOFEN5 M1 PO (15:03)
[2023-08-16] MEDS ORDERED: Norco 5-325 Ta1 EACH PO (15:04)
[2023-08-16] MEDS ORDERED: CEFAZOLIN2 GM/50 M3 IV (15:04)
--- NOTE | 2023-08-16 17:00 | NUR ---
Patient medically stable for discharge, plan to DC back to [facility] this evening to continue IV ABX. IV ABX administred BID, oxycodone & baclofen given for pain. Patient continues to report sharp radiating pain in neck. CBGs WNL. Vitals stable. Eyes appear better today, less drainage noted, eye gtt administred. Patient left medical unit at [address] [facility].
== END 2023-08-16 16:47 | DRG 65 ==
LOC: ER 14:33 → MEDS 14:34
PROVIDERS: Emergency Medicine; ADMIT Internal Medicine
DX: I63.9 Cerebral infarction, unspecified (principal); G81.94 Hemiplegia, unspecified affecting left nondominant side; I38 Endocarditis, valve unspecified; R78.81 Bacteremia; B95.61 Methicillin susceptible Staphylococcus aureus infection as the cause of diseases classified elsewhere; I65.02 Occlusion and stenosis of left vertebral artery; F15.10 Other stimulant abuse, uncomplicated; R13.10 Dysphagia, unspecified; E11.65 Type 2 diabetes mellitus with hyperglycemia; B18.2 Chronic viral hepatitis C; M51.9 Unspecified thoracic, thoracolumbar and lumbosacral intervertebral disc disorder; I10 Essential (primary) hypertension; F41.8 Other specified anxiety disorders; F98.8 Other specified behavioral and emotional disorders with onset usually occurring in childhood and adolescence; Z79.4 Long term (current) use of insulin
CPT/HCPCS: 36415; 70450; 70496; 70551; 80053; 81003; 82947; 85025; 85610; 85730; 87040; 93005; 93010; 93308; 93321; 96365; 96366; 96372; 96376; 99285-25; A9270; G0378; J0690; J1644; J1815; Q9967